=== PATIENT | female | born 1970 | race Caucasian/White ===

== ENCOUNTER 2021-03-29 13:58 | Outpatient (CLI) | payer MEDICAID, SELFPAY ==
--- NOTE | 2021-03-29 14:30 | MM_ITS ---
WS: [id number] DIAGNOSTIC BILATERAL DIGITAL MAMMOGRAM WITH CAD HISTORY: N63.10 - Unspecified lump in the right breast, COMPARISON: 06/21/2019 and 05/31/2019 TECHNIQUE: Bilateral craniocaudad, mediolateral oblique, and mediolateral views are submitted. Spot c ompression RIGHT CC. Computer aided detection utilized. Breast composition: There are scattered areas of fibroglandular density. Well-circumscribed nodule in the lateral RIGHT breast is stable over multiple prior years. There are no new or suspicious masses or calcifications. MM/[place] [id number] IMPRESSION: BI-RADS: 2-Benign FOLLOW UP: 1 Year Follow-up
== END 2021-03-29 13:59 | disposition home or self-care (01) ==
LOC: RADSHAW 14:01
PROVIDERS: Family Provider Nurse Practitioner; PCP Family Medicine; Visit Provider Family Medicine
DX: N63.10 Unspecified lump in the right breast, unspecified quadrant (principal)
CPT/HCPCS: 77066

== ENCOUNTER 2021-05-21 10:45 | Outpatient (CLI) | payer MEDICAID, SELFPAY ==
--- NOTE | 2021-05-21 10:15 | USCV_ITS ---
Alexsander Estephania Age: 50 Gender: F : 1970 Exam Date: 05/21/2021 11:04 Ordering Phys: Minerva Jefferson FORMING DEPARTMENT END FINDER FORMING DEPARTMENT END FINDER Technologist: TERENCE [place]am [place] [facility] [place] RIGHT LEG PAIN HISTORY: Lower extremity swelling. Lower extremity pain. PROCEDURES: Venous duplex imaging was performed in only the right lower extremity. The following venous structures were evaluated: common femoral vein, profunda vein, proximal portion of the greater saphenous vein, superficial femoral vein, and the popliteal vein. In addition, the posterior tibial and peroneal trunk were evaluated. FINDINGS: Normal 2-D Doppler and augmentation and compressibility throughout the lower extremity venous structures. Additional imaging through the proximal calf veins also reveals no thrombus. Limited evaluation of the greater saphenous vein is patent with no thrombus.. CONCLUSIONS No evidence of right lower extremity DVT. Leonid Schaeffer MD (Electronically Signed) Final Date: 21 May 2021 15:13 S
== END 2021-05-21 10:46 | disposition home or self-care (01) ==
LOC: RAD 10:51
PROVIDERS: Visit Provider Nurse Practitioner Family
DX: M79.89 Other specified soft tissue disorders (principal); M79.604 Pain in right leg; I10 Essential (primary) hypertension
CPT/HCPCS: 80053; 80061; 82306; 82607; 84443; 85025; 93971

== ENCOUNTER 2021-06-10 11:44 | Outpatient (CLI) | payer MEDICAID, SELFPAY ==
--- NOTE | 2021-06-10 11:45 | US_ITS ---
WS: [id number] ULTRASOUND SOFT TISSUES RIGHT lower extremity. HISTORY: M79.89 - Other specified soft tissue disorders COMPARISON: None available. TECHNIQUE: 2-D and color Doppler imaging is submitted. Ultrasound is directed to the anterior proximal tibia. There is a soft tissue complex ill-defined col lection measuring 3.5 x 3.2 x 1.7 cm. Very minimal peripheral increased vascularity. This is a comple x collection with fluid and infiltration into the adjacent soft tissues. US/US soft tissue/extremity [id number] IMPRESSION: Minimally complex fluid collection just below the knee. Differential includes d istended bursa or phlegmonous collection.
== END 2021-06-10 11:45 | disposition home or self-care (01) ==
LOC: US 11:47
PROVIDERS: PCP Nurse Practitioner Family; Visit Provider Nurse Practitioner Family
DX: M79.89 Other specified soft tissue disorders (principal)
CPT/HCPCS: 76882

== ENCOUNTER 2021-08-07 10:25 | Inpatient (IN) | payer MEDICAID, SELFPAY ==
[2021-08-07] VITALS (13 sets, daily range): BP systolic 96–168; BP diastolic 60–80; PULSE 64–103; RESP 18–29; TEMP 36.9–38.5; O2SAT 89–98; BMI 74.4; BMI 76.6
--- NOTE | 2021-08-07 10:59 | ED_ITS ---
HPI - COVID General: Chief Complaint: COVID symptoms Stated Complaint: COVID COUGH Time Seen by Provider: 08/07/21 10:34 Triage information: Has fever, cough or shortness of breath . Exposure to COVID + person last 14 days History of Present Illness: HPI Narrative: Ms. Beltre is a 50-year-old lady with complex past medical history including asthma who presents emerged department due to shortness of breath and cough. She reports cough was gradual onset initially dry however now productive over the past 3 days. She has mild increase shortness of breath however this morning she woke up feeling markedly ill. She has moderate to severe intensity headache, muscle aches, generalized malaise. She has had nausea but no vomiting. She has had diarrhea. She does have positive sick exposures to COVID-19. She reports that she is unable to get vaccinated due to flu shot allergy. Overall the course of symptoms has been worsening. Symptoms are worse with exertion but do not go with rest. No other specific exacerbating or relieving factors identified. She has not had to change the frequency of her asthma treatment. COVID Results: SARS-CoV-2 Antigen (Rapid) Positive (Negative) H 08/07/21 11:05 08/07/21 Nasal/Oral Coronavirus 2019 PCR Detected H 08/07/21 11:05 08/07/21 Review of Systems General: Reports: 10 or more systems reviewed and unremarkable except in HPI and below PFSH ED PFSH: Medical History COVID-19 Essential hypertension Hypoxemia Pneumonia due to COVID-19 virus Thyroid cyst Surgical History Hx of cholecystectomy Hx of tubal ligation Family History Brother CAD (coronary artery disease) [place] age 29 Diabetes Sister CAD (coronary artery disease) Son CAD (coronary artery disease) Father Cancer Mother Cancer Social History Second hand smoke exposure: No Alcohol intake: never Caregiver/support person: Yes Lives independently: Yes Household members: spouse and children Marital status: service: No Current occupational status: disabled History of recent travel: No Current gender identity: Female Special maeve needs: No Agree to transfusion: Yes Physical Exam Narrative: EXAM NARRATIVE: GENERAL/CONSTITUTIONAL -chronically ill appearance, obese. Eyes - PERRL, no conjunctival injection ENMT - Atraumatic external nose and ears. Dry mucous membranes NECK - supple. trachea midline CARDIOVASCULAR - regular rate and rhythm. Peripheral pulses 2+ and equal RESPIRATORY - coarse to auscultation bilaterally. Increased respiratory effort with tachypnea. Supplemental oxygen in place. ABDOMEN/GI - Nontender/Nondistended. No tenderness to percussion or evidence of peritonitis MSK - Extremities without obvious deformity or tenderness to palpation SKIN - Warm, Dry. Bilateral candidal appearing skin changes under breasts NEURO - alert and appropriately oriented. Moves all extremities equally. Course ED course: - Patient was seen and evaluated by me at bedside - Patient placed on cardiac monitors, IV access obtained - Initial evaluation notable for ill appearance, increased work of breathing. Febrile. -Symptom treatment ordered - Labs notable for no leukocytosis, metabolic panel without significant abnormality to explain symptoms. Delta troponin negative. Procalcitonin negative. Urinalysis difficult to interpret due to squamous epithelial contamination, will send for culture. Covid positive. - Imaging notable for patchy infiltrate - Upon serial reexamination after treatment the patient was similar - Based on patient history, evaluation, labs, and imaging as interpreted the most likely cause of the patient's condition is COVID-19 pneumonia in the context of significant comorbidity - The results of ED evaluation were discussed with the patient including plan for admission due to requirement for level of care not available if discharged to prevent significant worsening/deterioration. - Hospitalist service contacted and agreed admit the patient. - Patient was admitted without further deterioration or significant events. Vital Signs: Vital signs: Vital Signs Temperature 98.2 F 08/10/21 11:50 Pulse Rate 85 08/10/21 11:50 Respiratory Rate 18 08/10/21 11:50 Blood Pressure 97/61 08/10/21 11:50 Pulse Oximetry 88 L 08/10/21 13:54 MDM - COVID Medical Records: Attestation: I reviewed the patient's medical records. Lab Data: Attestation: I reviewed the patient's lab results. Labs: Lab Results 08/07/21 08/07/21 08/07/21 11:05 11:05 11:42 WBC 4.2 10^3/uL 10^3/ uL (4.0-10.0) RBC 4.66 10^6/uL 10^6 /uL (4.1-5.3) Hgb 13.8 g/dL g/dL (11.5-15.3) Hct 40.7 % % (37.0-47.0) MCV 87.3 fl fl (81-99) MCH 29.6 pg pg (28.0-34.0) MCHC 33.9 g/dL g/dL (30.0-36.0) RDW 13.4 % % (12.1-15.1) Plt Count 168 10^3/cmm 10^3 /cmm (130-400) MPV 11.0 fL H fL (7.4-10.4) Neut % (Auto) 66.8 % % Lymph % (Auto) 24.4 % % [place] % (Auto) 8.1 % % Eos % (Auto) 0.0 % % Baso % (Auto) 0.2 % % Neut # (Auto) 2.79 10^3/uL 10^3 /uL (1.8-7.7) Lymph # (Auto) 1.0 10^3/uL 10^3/ uL (0.8-4.8) [place] # (Auto) 0.3 10^3/uL 10^3/ uL (0.2-0.9) Eos # (Auto) 0.0 10^3/uL 10^3/ uL (0.0-0.8) Baso # (Auto) 0.0 10^3/uL 10^3/ uL (0.0-0.1) Nucleated RBC % (a uto) 0 % % Nucleated RBCs # 0.0 /100WBC /100W BC Specimen Type Sample Site ABG pH ABG pCO2 ABG pO2 ABG HCO3 ABG Base Excess [place] Test Hematocrit O2 Delivery Device O2 Liters/Min FiO2 Delivery Nurse ID Sodium Potassium Chloride Carbon Dioxide Anion Gap BUN Creatinine GFR Calculation Glucose Calculated Osmolal ity Lactic Acid Calcium Total Bilirubin AST ALT Alkaline Phosphata se Troponin T Baselin e Troponin T 120 Min [place] Delta Troponin T C-Reactive Protein NT-Pro-B Natriuret Pep Total Protein Albumin Globulin Procalcitonin Urine Color Urine Appearance Urine pH Ur Specific Gravit y Urine Protein Urine Glucose (UA) Urine Ketones Urine Blood Urine Nitrate Urine Bilirubin Urine Urobilinogen Ur Leukocyte Saima ase Urine RBC Urine WBC Ur Squamous Epith Cells Amorphous Sediment Urine Bacteria Urine Mucus Nasal/Oral COVID-1 9 PCR Detected H Influenza Type A A g Influenza Type B A g SARS-CoV-2 Ag (Rap id) Positive H (Negative) 08/07/21 08/07/21 08/07/21 11:42 11:42 11:42 WBC RBC Hgb Hct MCV MCH MCHC RDW Plt Count MPV Neut % (Auto) Lymph % (Auto) [place] % (Auto) Eos % (Auto) Baso % (Auto) Neut # (Auto) Lymph # (Auto) [place] # (Auto) Eos # (Auto) Baso # (Auto) Nucleated RBC % (a uto) Nucleated RBCs # Specimen Type Sample Site ABG pH ABG pCO2 ABG pO2 ABG HCO3 ABG Base Excess [place] Test Hematocrit O2 Delivery Device O2 Liters/Min FiO2 Delivery Nurse ID Sodium 134 mmol/L L mmol /L (136-145) Potassium 3.9 mmol/L mmol/L (3.5-5.1) Chloride 101 mmol/L mmol/L (98-107) Carbon Dioxide 22 mmol/L mmol/L (22-29) Anion Gap 14.9 (5-19) BUN 13 mg/dL mg/dL (6-20) Creatinine 0.9 mg/dL mg/dL (0.5-0.9) GFR Calculation 65.8 mL/min L mL/ min (90-130) Glucose 108 mg/dL mg/dL (65-115) Calculated Osmolal ity 279 mOsm/kg L mOs m/kg (285-295) Lactic Acid 0.8 mmol/L mmol/L (0.5-2.2) Calcium 7.8 mg/dL L mg/dL (8.5-10.5) Total Bilirubin 0.3 mg/dL mg/dL (0.15-1.2) AST 45 U/L H U/L (0-32) ALT 15 U/L U/L (0-33) Alkaline Phosphata se 60 IU/L IU/L (35-105) Troponin T Baselin e 10 ng/L ng/L (0-10) Troponin T 120 Min [place] Delta Troponin T C-Reactive Protein 99.3 mg/L H mg/L (0.0-4.9) NT-Pro-B Natriuret Pep 29 pg/mL pg/mL (0-125) Total Protein 6.0 g/dL L g/dL (6.6-8.7) Albumin 3.4 g/dL L g/dL (3.5-5.2) Globulin 2.6 g/dL g/dL (1.3-4.6) Procalcitonin 0.13 ng/mL ng/mL (0-0.5) Urine Color Urine Appearance Urine pH Ur Specific Gravit y Urine Protein Urine Glucose (UA) Urine Ketones Urine Blood Urine Nitrate Urine Bilirubin Urine Urobilinogen Ur Leukocyte Saima ase Urine RBC Urine WBC Ur Squamous Epith Cells Amorphous Sediment Urine Bacteria Urine Mucus Nasal/Oral COVID-1 9 PCR Influenza Type A A g Influenza Type B A g SARS-CoV-2 Ag (Rap id) 08/07/21 08/07/21 08/07/21 11:49 11:50 11:55 WBC RBC Hgb Hct MCV MCH MCHC RDW Plt Count MPV Neut % (Auto) Lymph % (Auto) [place] % (Auto) Eos % (Auto) Baso % (Auto) Neut # (Auto) Lymph # (Auto) [place] # (Auto) Eos # (Auto) Baso # (Auto) Nucleated RBC % (a uto) Nucleated RBCs # Specimen Type Arterial Sample Site Brachial, right ABG pH 7.42 (7.35-7.45) ABG pCO2 36.0 mmHg mmHg (35-45) ABG pO2 82.1 mmHg mmHg (80.0-100.0) ABG HCO3 23.2 mmol/L mmol/ L (22-26) ABG Base Excess -0.9 mmol/L mmol/ L (-2.0-2.0) [place] Test N/a Hematocrit 43.3 % % (37-47) O2 Delivery Device Nc O2 Liters/Min 2.0 % % FiO2 28.0 % % Delivery Nurse ID Amh Sodium Potassium Chloride Carbon Dioxide Anion Gap BUN Creatinine GFR Calculation Glucose Calculated Osmolal ity Lactic Acid Calcium Total Bilirubin AST ALT Alkaline Phosphata se Troponin T Baselin e Troponin T 120 Min [place] Delta Troponin T C-Reactive Protein NT-Pro-B Natriuret Pep Total Protein Albumin Globulin Procalcitonin Urine Color Dark yellow (Yellow) Urine Appearance Hazy A (CLEAR) Urine pH 5 (5-7) Ur Specific Gravit y 1.020 (1.005-1.030) Urine Protein 1+ H (Negative) Urine Glucose (UA) Norm (Normal) Urine Ketones 2+ H (Negative) Urine Blood Neg (Negative) Urine Nitrate Negative (Negative) Urine Bilirubin 1+ H (Negative) Urine Urobilinogen 8 mg/dL H mg/dL (Negative) Ur Leukocyte Saima ase Trace H (Negative) Urine RBC Not Reportable Urine WBC 10-15 /hpf H /hpf (0-5) Ur Squamous Epith Cells 5-10 /hpf H /hpf (0-5) Amorphous Sediment Not Reportable Urine Bacteria 2+ /hpf H /hpf (NONE) Urine Mucus 2+ /hpf /hpf Nasal/Oral COVID-1 9 PCR Influenza Type A A g Negative (Negative) Influenza Type B A g Negative (Negative) SARS-CoV-2 Ag (Rap id) 08/07/21 13:55 WBC RBC Hgb Hct MCV MCH MCHC RDW Plt Count MPV Neut % (Auto) Lymph % (Auto) [place] % (Auto) Eos % (Auto) Baso % (Auto) Neut # (Auto) Lymph # (Auto) [place] # (Auto) Eos # (Auto) Baso # (Auto) Nucleated RBC % (a uto) Nucleated RBCs # Specimen Type Sample Site ABG pH ABG pCO2 ABG pO2 ABG HCO3 ABG Base Excess [place] Test Hematocrit O2 Delivery Device O2 Liters/Min FiO2 Delivery Nurse ID Sodium Potassium Chloride Carbon Dioxide Anion Gap BUN Creatinine GFR Calculation Glucose Calculated Osmolal ity Lactic Acid Calcium Total Bilirubin AST ALT Alkaline Phosphata se Troponin T Baselin e Troponin T 120 Min [place] 10.53 ng/L H ng/L (0-10) Delta Troponin T 0.53 ABS# ABS# (0-10) C-Reactive Protein NT-Pro-B Natriuret Pep Total Protein Albumin Globulin Procalcitonin Urine Color Urine Appearance Urine pH Ur Specific Gravit y Urine Protein Urine Glucose (UA) Urine Ketones Urine Blood Urine Nitrate Urine Bilirubin Urine Urobilinogen Ur Leukocyte Saima ase Urine RBC Urine WBC Ur Squamous Epith Cells Amorphous Sediment Urine Bacteria Urine Mucus Nasal/Oral COVID-1 9 PCR Influenza Type A A g Influenza Type B A g SARS-CoV-2 Ag (Rap id) EKG Data: EKG 1: Attestation: I personally reviewed and interpreted this EKG as follows: EKG interpretation date: 08/07/21 EKG interpretation time: 11:44 Interpretation: Twelve-lead EKG shows a regular rhythm at a rate of 91. NC interval 161, QRS duration 101, QTc 429. Borderline axis Interpretation: Sinus rhythm. EKG 2: Attestation: I personally reviewed and interpreted this EKG as follows: EKG interpretation date: 08/07/21 EKG interpretation time: 16:41 Interpretation: Twelve-lead EKG shows a regular rhythm at a rate of 86. NC interval 164, QRS duration 93, QTc 433. Borderline axis. Interpretation: Sinus rhythm. COVID Results: SARS-CoV-2 Antigen (Rapid) Positive (Negative) H 08/07/21 11:05 08/07/21 Nasal/Oral Coronavirus 2019 PCR Detected H 08/07/21 11:05 08/07/21 Discharge Plan Discharge Patient Disposition: Admitted As Inpatient Admit Provider: Torres Griffin Clinical Impression: COVID-19, Hypoxemia Condition: Stable Discharge Diet: Regular Discharge Activity: Increase activity as tolerated Coding Level of Care Code ED Legal Executive for Pilar Cummings
--- NOTE | 2021-08-07 11:13 | ECG_ITS ---
[facility] Test Date: 2021-08-07 Pat Name: Estephania Beltre Department: Room: Gender: Female Urology Physician: : 1970 Requested By: Bryan Ashley Order Number: [id number] Prakash MD: Jose Tracy M.D. Measurements Intervals [place] Rate: 91 P: 23 [place]: 161 QRS: -25 QRSD: 101 T: 21 QT: 348 QTc: 429 Interpretive Statements SINUS RHYTHM BORDERLINE LEFT AXIS DEVIATION [QRS AXIS < -20] Compared to ECG 01/01/2018 08:38:26 Sinus tachycardia no longer present Indeterminate axis no longer present Incomplete right bundle-branch block no longer present Myocardial infarct finding no longer present Electronically Signed On 08-07-2021 20:42:52 EDGE BASTER by Jose Tracy M.D. [id number]
--- NOTE | 2021-08-07 11:13 | XR_ITS ---
WS: [id number] Portable AP semiupright chest, 08/07/2021 Clinical Data: sob, cough Comparison: PA and lateral chest, 10/28/2012. Findings: No nodules, masses or effusions are seen. The heart is enlarged. The pulmonary vascularity is not increased. No pneumothorax is seen. There are patchy bilateral opacities throughout the lungs which may represent pneumonia. Monitor leads are on the chest wall. XR/XR chest 1V portable [id number] Impression: 1. Patchy bilateral pulmonary opacities which may represent pneumonia. 2. Cardiomegaly.
[2021-08-07 12:00] LABS: Basophils % 0.2 %; Hematocrit 40.7 % (37.0-47.0); Hemoglobin 13.8 g/dL (11.5-15.3); Lymphocytes % 24.4 %; Mean Corpuscular HGB Conc 33.9 g/dL (30.0-36.0); Mean Corpuscular Hemoglobin 29.6 pg (28.0-34.0); Mean Corpuscular Volume 87.3 fl (81-99); Monocytes # 0.3 10^3/uL (0.2-0.9); Monocytes % 8.1 %; Neutrophils # 2.79 10^3/uL (1.8-7.7); Neutrophils % 66.8 %; Nucleated Red Blood Cells % 0 %; Platelet Count 168 10^3/cmm (130-400); Red Blood Count 4.66 10^6/uL (4.1-5.3); Red Cell Distribution Width 13.4 % (12.1-15.1); White Blood Count 4.2 10^3/uL (4.0-10.0)
[2021-08-07 12:00] LABS: ABG PH Result 7.42 (7.35-7.45); Arterial Blood Gas Hematocrit 43.3 % (37-47); Base Excess ABG -0.9 mmol/L (-2.0-2.0); Blood Gas Operator Identificat AMH; Blood Gas Sample Site Brachial, right; Blood Gas Sample Type Arterial; HCO3 ABG 23.2 mmol/L (22-26); Oxygen Device NC; PO2 ABG 82.1 mmHg (80.0-100.0)
[2021-08-07 12:22] LABS: Lactic Sepsis W/Reflex 0.8 mmol/L (0.5-2.2)
[2021-08-07 12:26] LABS: Troponin(5th) Baseline 10 ng/L (0-10)
[2021-08-07 12:31] LABS: NT Pro B Type Natriuretic Pept 29 pg/mL (0-125); Procalcitonin 0.13 ng/mL (0-0.5)
[2021-08-07 12:42] LABS: Alanine Aminotransferase 15 U/L (0-33); Albumin Level 3.4 g/dL (3.5-5.2); Alkaline Phosphatase 60 IU/L (35-105); Anion Gap 14.9 (5-19); Aspartate Amino Transferase 45 U/L (0-32); Blood Urea Nitrogen 13 mg/dL (6-20); C Reactive Protein 99.3 mg/L (0.0-4.9); Calcium 7.8 mg/dL (8.5-10.5); Carbon Dioxide 22 mmol/L (22-29); Chloride 101 mmol/L (98-107); Globulin 2.6 g/dL (1.3-4.6); Glomerular Filtration Rate 65.8 mL/min (90-130); Glucose 108 mg/dL (65-115); Osmolality Calculated 279 mOsm/kg (285-295); Potassium 3.9 mmol/L (3.5-5.1); Sodium 134 mmol/L (136-145); Total Bilirubin 0.3 mg/dL (0.15-1.2)
[2021-08-07 13:02] LABS: SARS Covid-2 Antigen Positive (Negative)
[2021-08-07 13:02] LABS: Influenza A by IFA Negative (Negative); Influenza B by IFA Negative (Negative)
--- NOTE | 2021-08-07 13:13 | ECG_ITS ---
[facility] Test Date: 2021-08-07 Pat Name: Estephania Beltre Department: Room: 275 Gender: Female Vat Overhauler: : 1970 Requested By: rByan Ashley Order Number: [id number] Prakash MD: Jose Tracy M.D. Measurements Intervals [place] Rate: 86 P: 29 [place]: 164 QRS: 3 QRSD: 93 T: 24 QT: 361 QTc: 433 Interpretive Statements SINUS RHYTHM Compared to ECG 08/07/2021 14:27:46 Indeterminate axis no longer present Electronically Signed On 08-07-2021 20:51:35 INSPECTOR PRECISION by Jose Tracy M.D. [id number]
--- NOTE | 2021-08-07 13:42 | PC.PHAR ---
PT STATES SHE TAKES CARE OF HER OWN MEDICATIONS-PT VERIFIED MEDICATIONS ENTERED
[2021-08-07] MEDS: acetaminophen 500 mg Tablet 1000 MG PO (13:46)
[2021-08-07 13:48] LABS: Charge for UA Resulting for Rev
[2021-08-07] MEDS: fentaNYL 50 mcg/mL INJ 2mL IVP (13:48)
[2021-08-07] MEDS: ondansetron 2 mg/ML SDV 2 mL 4 MG IVP (13:48)
[2021-08-07] MEDS: sodium chloride 0.9% 500 ML 999 ML IV (13:52)
[2021-08-07 14:01] LABS: Glucose Urine UA Norm (Normal); Ketones Urine 2+ (Negative); Protein Urine 1+ (Negative); Urine Appearance Hazy (CLEAR); Urine Color Dark Yellow (Yellow); pH Urine 5 (5-7)
[2021-08-07 14:02] LABS: Add Urine Microscopic? YES; Bilirubin Urine 1+ (Negative); Blood Urine Neg (Negative); Leukocyte Esterase Urine Trace (Negative); Nitrate Urine Negative (Negative); Urobilinogen Urine 8 mg/dL (Negative)
[2021-08-07 14:09] LABS: Add Urine Culture? Yes; Bacteria Urine 2+ /hpf; Mucus Urine 2+ /hpf
[2021-08-07 14:33] LABS: Troponin 5 2HR 10.53 ng/L (0-10); Troponin 5 2HR Delta 0.53 ABS# (0-10)
[2021-08-07] MEDS: albuterol 8 gm MDI 2 PUFF INHALATION ×3 (16:25→23:48)
[2021-08-07] MEDS: cefTRIAXone 1,000 MG in sodium chloride 0.9% (plus) 50 ML 100 MG IV (16:39)
[2021-08-07] MEDS: enoxaparin 40 mg/0.4 mL Syringe SUBCUT (16:39)
[2021-08-07] MEDS: doxycycline 100 MG in sodium chloride 0.9% (plus) 100 ML IV (16:43)
[2021-08-07] MEDS: dexamethasone 4 mg/mL INJ 6 MG IVP (16:44)
[2021-08-07] MEDS: remdesivir 200 MG in sodium chloride 0.9% (100 ml) 60 ML 100 MG IV (16:44)
[2021-08-07] MEDS: nystatin powder 15 gm Btl 1 APPLIC TOPICAL (16:45)
[2021-08-07] MEDS: ascorbic acid 500 mg Tablet 1000 MG PO (17:12)
--- NOTE | 2021-08-07 17:13 | ECG_ITS ---
[facility] Test Date: 2021-08-07 Pat Name: Estephania Beltre Department: Room: Gender: Female Visitor Use Assistant: : 1970 Requested By: Bryan Ashley Order Number: [id number] Prakash MD: Jose Tracy M.D. Measurements Intervals [place] Rate: 94 P: 18 [place]: 149 QRS: 9 QRSD: 98 T: 14 QT: 346 QTc: 433 Interpretive Statements SINUS RHYTHM INDETERMINATE AXIS PATTERN CONSISTENT WITH PULMONARY DISEASE Compared to ECG 08/07/2021 11:28:56 Indeterminate axis now present Electronically Signed On 08-07-2021 20:49:29 OIL FIELD PUMPER by Jose Tracy M.D. [id number]
[2021-08-07 18:48] LABS: Troponin 5 6HR 9.68 ng/L (0-10)
[2021-08-07 18:56] LABS: Troponin 5 6HR Delta -0.32 ng/L (0-12)
--- NOTE | 2021-08-07 19:39 | PM.HP ---
Providers/Chief Complaint Admitting Physician: Torres Griffin MD Primary Care Provider: RAND Mares Chief Complaint: COVID COUGH History of Present Illness Estephania Beltre is a 50 year old female with past medical history of hypertension and morbid obesity came in with chief complaint of fever , cough , and generalized weakness, generalized body pain, shortness of breath ,going on for the last 3 to 4 days. Upon arrival in the ER, she was worked up for above mention, complain. Pertaining imaging study: XR chest : Bilateral pulmonary infiltrates Pertinent labs: WBC :4.2, H&H:13.8/40.7, PLT : 168, serum sodium:134 , serum potassium:3.9, BUN / serum creatinine: 13/0.9, Lactic acid:0.8, procalcitonin:NORMAL, troponin trend without significant delta. Rapid Covid antigen: Positive CRP:99.3, Review of Systems Const: Denies: change in appetite or diaphoresis Card: Denies: edema, swelling of feet/ankles, orthopnea or leg pain with exertion Resp: Denies: pain on inspiration GI: Denies: abdominal pain, diarrhea or constipation : Denies: flank pain Musc: Denies: extremity pain or extremity swelling Neuro: Denies: difficulty walking or confusion Medications/Allergies Home Medications Medication Instructions Recorded Confirmed Last Taken Type hydrochlorothiazide 25 mg tablet 25 mg PO QAM #90 tab 05/21/21 08/07/21 08/06/21 Rx Allergy Relief (cetirizine) 10 mg PO QAM 08/07/21 08/07/21 Unknown History ProAir HFA 2 puff INHALATION QID PRN 08/07/21 08/07/21 Unknown History acetaminophen [Tylenol Ex Str 500 mg PO Q4H PRN 08/07/21 08/07/21 08/07/21 06:00 History Rapid Release] albuterol sulfate 2.5 mg INHALATION QID PRN 08/07/21 08/07/21 Unknown History ergocalciferol (vitamin D2) 50,000 unit PO Q7D 08/07/21 08/07/21 08/05/21 History fluticasone propionate 2 spray INTRANASAL DAILY 08/07/21 08/07/21 08/06/21 History lisinopril 10 mg PO QAM 08/07/21 08/07/21 08/06/21 History melatonin 10 mg PO BEDTIME 08/07/21 08/07/21 Unknown History montelukast 10 mg PO QAM 08/07/21 08/07/21 08/06/21 History trazodone 50 mg PO BEDTIME 08/07/21 08/07/21 08/06/21 History Allergies Allergy/AdvReac Type Severity Reaction Status Date / Time aspirin Allergy Unknown RASH Verified 08/07/21 13:45 dextromethorphan Allergy Unknown RASH Verified 08/07/21 13:45 [From Entex PAC] erythromycin base Allergy Unknown Unknown Verified 08/07/21 13:45 guaifenesin [From Entex PAC] Allergy Unknown RASH Verified 08/07/21 13:45 ibuprofen Allergy Unknown RASH Verified 08/07/21 13:45 Penicillins Allergy Unknown Unknown Verified 08/07/21 13:45 pseudoephedrine Allergy Unknown RASH Verified 08/07/21 13:45 [From Entex PAC] tramadol [From Ultram] Allergy Unknown RASH Verified 08/07/21 13:45 Influenza Virus Vaccines Allergy Unknown Verified 08/07/21 13:45 pneumococcal vaccine Allergy Unknown Verified 08/07/21 13:45 PFSH Acute PFSH: Medical History Thyroid cyst Surgical History Hx of cholecystectomy Hx of tubal ligation Family History Brother CAD (coronary artery disease) [place] age 29 Diabetes Sister CAD (coronary artery disease) Son CAD (coronary artery disease) Father Cancer Mother Cancer Social History Second hand smoke exposure: No Alcohol intake: never Caregiver/support person: Yes Lives independently: Yes Household members: spouse and children Marital status: service: No Current occupational status: disabled History of recent travel: No Current gender identity: Female Special maeve needs: No Agree to transfusion: Yes Vitals/I&O/Wt Last Vital Signs Temp 99.1 F 08/07/21 16:36 Pulse 87 08/07/21 16:36 Resp 23 H 08/07/21 16:36 BP 107/62 11/10/21 16:36 Pulse Ox 92 08/07/21 16:36 08/07/21 08/07/21 08/07/21 06:59 14:59 22:59 Intake Total 500 / 500 510 / 1010 Balance 500 / 500 510 / 1010 Weight last 48 hrs Weight 196.122 kg Weight 190.509 kg Physical Exam Const: COMMON NORMALS: patient oriented x3 HENMT: COMMON NORMALS: normocephalic and atraumatic HEAD & SCALP: normocephalic and atraumatic Resp: COMMON NORMALS: clear to auscultation bilaterally EFFORT & INSPECTION: Yes symmetric chest movement AUSCULTATION: clear to auscultation bilaterally OTHER: Diminished air entry at bases Cardio: COMMON NORMALS: regular rate, regular rhythm, S1 normal heart sound present, S2 normal heart sound present, No gallops present (Cardio), No murmurs present (Cardio), No rub (Cardio) and Peripheral pulses 2+ throughout RATE: regular rate RHYTHM: regular rhythm HEART SOUNDS: S1 normal heart sound present and S2 normal heart sound present PERIPHERAL PULSES: Peripheral pulses 2+ throughout GI: COMMON NORMALS: Normal to inspection, nondistended, normoactive bowel sounds present, Soft to palpation, non-tender, No hepatosplenomegaly present and no masses AUSCULTATION: Yes normoactive bowel sounds PALPATION: Yes Soft to palpation and Yes No hepatosplenomegaly present RECTAL EXAM: deferred Extremity: COMMON NORMALS: no clubbing, cyanosis or edema and no pedal edema Neuro: COMMON NORMALS: patient oriented x3 Urinary Catheter Management^: 2-way Urethral Latex Free: Cath Placed During This Visit: yes Reason for Continuing Indwelling Catheter: Acute Urinary Retention or Obstruction Urinary Catheter Date of Insertion: 08/07/21 Urinary Catheter Time of Insertion: 12:00 Data : 08/07/21 11:42 08/07/21 11:42 Micro: Microbiology 08/07/21 11:42 Blood Culture - Preliminary Blood SPECIMEN COLLECTED 08/07/21 11:42 Blood Culture - Preliminary Blood SPECIMEN COLLECTED A&P Assessment and plan (1) Pneumonia due to COVID-19 virus: Pneumonia due to COVID-19 virus. X-ray chest: Blood culture: ESR CRP D-dimer Ferritin LDH Dexamethasone 6 mg IV daily for 10 days Remdesivir for 3 - 5 days Duo nebs Advair inhaler Pulmonary toilet Empirically on ceftriaxone and doxycycline Lovenox 40 mg subcu every 12 hours daily I/O Charting Lasix as needed. Supplemental oxygen as needed. incentive spirometer and flutter valve Possible pulmonary consult Status: Acute (2) Essential hypertension: Continue lisinopril 10 mg p.o. daily,hctz 25 mg po daily Status: Acute Attestations Medical Necessity Statement*: Patient needs to be in hospital for management of Covid pneumonia. Anticipated length of stay greater than 2 midnightS. Coding Level of Care Code Acute Manager Of Sustainability for [facility] Fwd Exam Detailed Diagnoses Pneumonia due to COVID-19 virus U07.1; J12.82 Essential hypertension I10
[2021-08-07] MEDS: trazodone 50 mg Tablet PO (20:23)
[2021-08-08] VITALS (13 sets, daily range): BP systolic 106–125; BP diastolic 67–92; PULSE 69–90; RESP 16–24; TEMP 36.6–37.1; O2SAT 90–95
[2021-08-08] MEDS: albuterol 8 gm MDI 2 PUFF INHALATION ×4 (04:38→17:13)
[2021-08-08] MEDS: doxycycline 100 MG in sodium chloride 0.9% (plus) 100 ML IV ×2 (04:43→15:38)
[2021-08-08] MEDS: enoxaparin 40 mg/0.4 mL Syringe SUBCUT ×2 (04:43→15:39)
[2021-08-08] MEDS: hydroCHLOROthiazide 25 mg Tablet PO (05:00)
[2021-08-08 05:34] LABS: Hematocrit 40.7 % (37.0-47.0); Hemoglobin 13.6 g/dL (11.5-15.3); Lymphocytes # 0.7 10^3/uL (0.8-4.8); Lymphocytes % 25.3 %; Mean Corpuscular HGB Conc 33.4 g/dL (30.0-36.0); Mean Corpuscular Hemoglobin 29.1 pg (28.0-34.0); Mean Platelet Volume 11.7 fL (7.4-10.4); Monocytes # 0.3 10^3/uL (0.2-0.9); Monocytes % 10.8 %; Neutrophils # 1.71 10^3/uL (1.8-7.7); Neutrophils % 63.5 %; Nucleated Red Blood Cells % 0 %; Platelet Count 177 10^3/cmm (130-400); Red Blood Count 4.68 10^6/uL (4.1-5.3); Red Cell Distribution Width 13.6 % (12.1-15.1); White Blood Count 2.7 10^3/uL (4.0-10.0)
[2021-08-08 05:48] LABS: INR 1.02 (0.8-1.2)
[2021-08-08 05:49] LABS: Partial Thromboplastin Time 34.6 SECONDS (23.9-36.7)
[2021-08-08 05:55] LABS: Alanine Aminotransferase 17 U/L (0-33); Albumin Level 3.4 g/dL (3.5-5.2); Alkaline Phosphatase 60 IU/L (35-105); Anion Gap 16.8 (5-19); Aspartate Amino Transferase 50 U/L (0-32); Blood Urea Nitrogen 11 mg/dL (6-20); Calcium 7.9 mg/dL (8.5-10.5); Carbon Dioxide 21 mmol/L (22-29); Chloride 101 mmol/L (98-107); Globulin 3.3 g/dL (1.3-4.6); Glomerular Filtration Rate 75.3 mL/min (90-130); Glucose 137 mg/dL (65-115); Osmolality Calculated 282 mOsm/kg (285-295); Potassium 3.8 mmol/L (3.5-5.1); Sodium 135 mmol/L (136-145); Total Bilirubin 0.3 mg/dL (0.15-1.2); Total Protein 6.7 g/dL (6.6-8.7)
[2021-08-08 06:07] LABS: NT Pro B Type Natriuretic Pept 37 pg/mL (0-125)
[2021-08-08] MEDS: zinc gluconate 50 mg Tablet PO (08:31)
[2021-08-08] MEDS: nystatin powder 15 gm Btl 1 APPLIC TOPICAL ×2 (08:31→18:10)
[2021-08-08] MEDS: ascorbic acid 500 mg Tablet 1000 MG PO ×2 (08:31→18:10)
--- NOTE | 2021-08-08 13:25 | PM.PN ---
Subjective Subjective: Interval history: Patient shortness of breath and cough is improved. Has remained afebrile. Currently saturating well on minimal supplemental oxygen. Medications: Reviewed: Yes Vitals/I&O/Wt Last Vital Signs Temp 98.0 F 08/08/21 11:49 Pulse 82 08/08/21 11:49 Resp 18 08/08/21 11:49 BP 106/71 08/08/21 11:49 Pulse Ox 93 08/08/21 11:49 08/07/21 08/08/21 08/08/21 22:59 06:59 14:59 Intake Total 510 / 1010 550 / 1560 480 / 480 Balance 510 / 1010 550 / 1560 480 / 480 Weight last 48 hrs Weight 196.122 kg Weight 190.509 kg Physical Exam Const: COMMON NORMALS: patient oriented x3 HENMT: COMMON NORMALS: normocephalic and atraumatic HEAD & SCALP: normocephalic and atraumatic Resp: COMMON NORMALS: clear to auscultation bilaterally EFFORT & INSPECTION: Yes symmetric chest movement AUSCULTATION: clear to auscultation bilaterally OTHER: Diminished air entry at bases Cardio: COMMON NORMALS: regular rate, regular rhythm, S1 normal heart sound present, S2 normal heart sound present, No gallops present (Cardio), No murmurs present (Cardio), No rub (Cardio) and Peripheral pulses 2+ throughout RATE: regular rate RHYTHM: regular rhythm HEART SOUNDS: S1 normal heart sound present and S2 normal heart sound present PERIPHERAL PULSES: Peripheral pulses 2+ throughout GI: COMMON NORMALS: Normal to inspection, nondistended, normoactive bowel sounds present, Soft to palpation, non-tender, No hepatosplenomegaly present and no masses AUSCULTATION: Yes normoactive bowel sounds PALPATION: Yes Soft to palpation and Yes No hepatosplenomegaly present RECTAL EXAM: deferred Extremity: COMMON NORMALS: no clubbing, cyanosis or edema and no pedal edema Neuro: COMMON NORMALS: patient oriented x3 Urinary Catheter Management^: 2-way Urethral Latex Free: Cath Placed During This Visit: yes Reason for Continuing Indwelling Catheter: Other Urinary Catheter Date of Insertion: 08/07/21 Urinary Catheter Time of Insertion: 12:00 Data : 08/08/21 04:36 08/08/21 04:36 Micro: Microbiology 08/07/21 11:50 Urine Culture - Preliminary Urine,Clean Catch 08/07/21 11:42 Blood Culture - Preliminary Blood SPECIMEN COLLECTED 08/07/21 11:42 Blood Culture - Preliminary Blood SPECIMEN COLLECTED A&P Assessment and plan (1) Pneumonia due to COVID-19 virus: Pneumonia due to COVID-19 virus. X-ray chest: Blood culture:NTD Urine culture: ESR CRP D-dimer Ferritin LDH Dexamethasone 6 mg IV daily for 10 days Remdesivir for 3 - 5 days Duo nebs Advair inhaler Pulmonary toilet Empirically on ceftriaxone and doxycycline Lovenox 40 mg subcu every 12 hours daily I/O Charting Lasix as needed. Supplemental oxygen as needed. incentive spirometer and flutter valve Possible pulmonary consult Status: Acute (2) Essential hypertension: Continue lisinopril 10 mg p.o. daily,hctz 25 mg po daily Status: Acute Attestations Medical Necessity Statement*: Patient is to be hospital for management of Covid pneumonia. Coding Level of Care Code Acute Collection Systems Technician for [facility] Fwd Exam Detailed Diagnoses Pneumonia due to COVID-19 virus U07.1; J12.82 Essential hypertension I10
[2021-08-08] MEDS: dexamethasone 4 mg/mL INJ 6 MG IVP (15:39)
[2021-08-08] MEDS: cefTRIAXone 1,000 MG in sodium chloride 0.9% (plus) 50 ML 100 MG IV (16:59)
[2021-08-08] MEDS: remdesivir 100 MG in sodium chloride 0.9% (100 ml) 80 ML IV (19:00)
[2021-08-08] MEDS: trazodone 50 mg Tablet PO (20:11)
[2021-08-09] VITALS (15 sets, daily range): BP systolic 94–111; BP diastolic 60–74; PULSE 67–87; RESP 18–22; TEMP 36.4–37; O2SAT 90–97
[2021-08-09] MEDS: albuterol 8 gm MDI 2 PUFF INHALATION ×8 (00:07→23:53)
[2021-08-09] MEDS: doxycycline 100 MG in sodium chloride 0.9% (plus) 100 ML IV ×2 (04:26→18:11)
[2021-08-09] MEDS: enoxaparin 40 mg/0.4 mL Syringe SUBCUT ×2 (04:26→18:12)
[2021-08-09 06:14] LABS: Hematocrit 41.2 % (37.0-47.0); Hemoglobin 13.6 g/dL (11.5-15.3); Lymphocytes % 21.7 %; Mean Corpuscular Hemoglobin 28.6 pg (28.0-34.0); Mean Corpuscular Volume 86.7 fl (81-99); Mean Platelet Volume 11.4 fL (7.4-10.4); Monocytes # 0.5 10^3/uL (0.2-0.9); Monocytes % 10.3 %; Neutrophils # 3.02 10^3/uL (1.8-7.7); Neutrophils % 67.6 %; Nucleated Red Blood Cells % 0 %; Platelet Count 194 10^3/cmm (130-400); Red Blood Count 4.75 10^6/uL (4.1-5.3); Red Cell Distribution Width 13.6 % (12.1-15.1); White Blood Count 4.5 10^3/uL (4.0-10.0)
[2021-08-09 06:27] LABS: D Dimer 0.87 ug/mIFEU (0-0.59)
[2021-08-09 06:30] LABS: Fibrinogen 440 mg/dL (174-498)
[2021-08-09 06:31] LABS: Alanine Aminotransferase 18 U/L (0-33); Albumin Level 3.3 g/dL (3.5-5.2); Alkaline Phosphatase 58 IU/L (35-105); Aspartate Amino Transferase 51 U/L (0-32); Blood Urea Nitrogen 14 mg/dL (6-20); C Reactive Protein 60.7 mg/L (0.0-4.9); Carbon Dioxide 23 mmol/L (22-29); Chloride 101 mmol/L (98-107); Globulin 3.2 g/dL (1.3-4.6); Glomerular Filtration Rate 75.3 mL/min (90-130); Glucose 158 mg/dL (65-115); Osmolality Calculated 286 mOsm/kg (285-295); Sodium 136 mmol/L (136-145); Total Bilirubin 0.2 mg/dL (0.15-1.2); Total Protein 6.5 g/dL (6.6-8.7)
[2021-08-09 06:48] LABS: Ferritin 1273 ng/mL (15-150)
[2021-08-09 07:44] LABS: Slide Review Slide Review Perform
[2021-08-09] MEDS: ascorbic acid 500 mg Tablet 1000 MG PO ×2 (10:18→18:13)
[2021-08-09] MEDS: zinc gluconate 50 mg Tablet PO (10:18)
[2021-08-09] MEDS: nystatin powder 15 gm Btl 1 APPLIC TOPICAL ×2 (10:18→18:12)
--- NOTE | 2021-08-09 13:53 | PM.PN ---
Subjective Subjective: Interval history: Patient was seen and examined this morning currently saturating well on 2 to 3 L oxygens. Has continued to remain afebrile, still has minimum cough. Medications: Reviewed: Yes Vitals/I&O/Wt Last Vital Signs Temp 98.6 F 08/09/21 11:55 Pulse 74 08/09/21 11:55 Resp 20 H 08/09/21 11:55 BP 98/62 08/09/21 11:55 Pulse Ox 92 08/09/21 11:55 08/08/21 08/09/21 08/09/21 22:59 06:59 14:59 Intake Total 230 / 830 700 / 1530 120 / 120 Balance 230 / 830 700 / 1530 120 / 120 Weight last 48 hrs Weight 196.122 kg Physical Exam Const: COMMON NORMALS: patient oriented x3 HENMT: COMMON NORMALS: normocephalic and atraumatic HEAD & SCALP: normocephalic and atraumatic Resp: EFFORT & INSPECTION: Yes symmetric chest movement OTHER: Diminished air entry at bases, minimal rt basal crackles present. Cardio: COMMON NORMALS: regular rate, regular rhythm, S1 normal heart sound present, S2 normal heart sound present, No gallops present (Cardio), No murmurs present (Cardio), No rub (Cardio) and Peripheral pulses 2+ throughout RATE: regular rate RHYTHM: regular rhythm HEART SOUNDS: S1 normal heart sound present and S2 normal heart sound present PERIPHERAL PULSES: Peripheral pulses 2+ throughout GI: COMMON NORMALS: Normal to inspection, nondistended, normoactive bowel sounds present, Soft to palpation, non-tender, No hepatosplenomegaly present and no masses AUSCULTATION: Yes normoactive bowel sounds PALPATION: Yes Soft to palpation and Yes No hepatosplenomegaly present RECTAL EXAM: deferred Extremity: COMMON NORMALS: no clubbing, cyanosis or edema and no pedal edema Neuro: COMMON NORMALS: patient oriented x3 Urinary Catheter Management^: 2-way Urethral Latex Free: Cath Placed During This Visit: yes Reason for Continuing Indwelling Catheter: Other Urinary Catheter Date of Insertion: 08/07/21 Urinary Catheter Time of Insertion: 12:00 Data : 08/09/21 05:40 08/09/21 05:40 Micro: Microbiology 08/07/21 11:50 Urine Culture - Final Urine,Clean Catch 08/07/21 11:42 Blood Culture - Preliminary Blood NEGATIVE TO DATE 08/07/21 11:42 Blood Culture - Preliminary Blood NEGATIVE TO DATE A&P Assessment and plan (1) Pneumonia due to COVID-19 virus: Pneumonia due to COVID-19 virus. X-ray chest: Blood culture:NTD Urine culture: No growth ESR: CRP:60 D-dimer:0.87 Ferritin:1273 Fibrinogen:440 LDH: Dexamethasone 6 mg IV daily for 10 days Remdesivir for 3 - 5 days Duo nebs Advair inhaler Pulmonary toilet Empirically on ceftriaxone and doxycycline Lovenox 40 mg subcu every 12 hours daily I/O Charting Lasix as needed. Supplemental oxygen as needed. incentive spirometer and flutter valve Possible pulmonary consult Status: Acute (2) Essential hypertension: Continue lisinopril 10 mg p.o. daily,hctz 25 mg po daily Status: Acute Attestations Medical Necessity Statement*: Patient is to be in the hospital for management of pneumonia. Coding Level of Care Code Acute Rotary Saw Operator for [facility] Fwd Exam Detailed Diagnoses Pneumonia due to COVID-19 virus U07.1; J12.82 Essential hypertension I10
--- NOTE | 2021-08-09 14:20 | PC.CHAP ---
Pastoral Care Encounter/Spiritual Assessment Type of Contact [] Declined sign writer letterer or painter visit [] Patient/Family/Request visit [] Outpatient visit [] Follow-up visit [] Physician referral [] Code/Alert [] Routine visit [] Staff referral [] Actively dying [] Patient sleeping [] Family support [] [] Out of room [] Palliative care [] [] Receiving care in room [] Pre-surgical visit [] Trauma [] Long length of stay [] ICU visit [xx] Other: ISOLATION Relational/Emotional Strength [] Patient feels connected with others/family/visitors/staff [] Distress [] Loneliness/isolation [] Abandonment Spirituality of Patient [] Person of Radha [] Attends Sikhism of their Radha [] Believes in Prayer [] Reads Bible or Synagogue materials [] There are Spiritual issues to be addressed Management Trainee Program Stores Interventions [] Prayer [] Active listening [] Non-anxious presence [] Spiritual/emotional support [] Crisis/trauma care [] Spiritual counseling [] Bereavement support [] Provided bereavement packet [] Provided Bible/devotional materials [] Provided toy/stuffed animal, coloring book to patient or family member [] Provided Communion [] Anointing/[place] [] Salvation [] Completed spiritual assessment [] Other: Impact on Illness or Injury [] Angry [] Fearful [] Anxious [] Often cries [] Exhaustion [] Unable to work [] Unable to attend shinto [] Unable to walk/stand [] Unable to read [] Unable to drive [] Unable to eat/drink [] Unable to sleep [] Unable to be with family [] Patient intubated [] Other: Summary Time spent with patient
[2021-08-09 17:07] LABS: Coronavirus Test Green County Detected
[2021-08-09] MEDS: dexamethasone 4 mg/mL INJ 6 MG IVP (18:13)
[2021-08-09] MEDS: remdesivir 100 MG in sodium chloride 0.9% (100 ml) 80 ML IV (21:49)
[2021-08-09] MEDS: trazodone 50 mg Tablet PO (21:50)
[2021-08-09] MEDS: cefTRIAXone 1,000 MG in sodium chloride 0.9% (plus) 50 ML 100 MG IV (23:35)
[2021-08-10] VITALS (10 sets, daily range): BP systolic 97–108; BP diastolic 61–70; PULSE 75–88; RESP 17–20; TEMP 36.4–36.8; O2SAT 88–94
[2021-08-10] MEDS: albuterol 8 gm MDI 2 PUFF INHALATION ×3 (03:26→11:18)
[2021-08-10] MEDS: doxycycline 100 MG in sodium chloride 0.9% (plus) 100 ML IV (05:17)
[2021-08-10] MEDS: enoxaparin 40 mg/0.4 mL Syringe SUBCUT (05:17)
[2021-08-10] MEDS: hydroCHLOROthiazide 25 mg Tablet PO (06:17)
[2021-08-10 06:51] LABS: Hematocrit 40.7 % (37.0-47.0); Hemoglobin 13.4 g/dL (11.5-15.3); Lymphocytes # 1.1 10^3/uL (0.8-4.8); Lymphocytes % 20.6 %; Mean Corpuscular HGB Conc 32.9 g/dL (30.0-36.0); Mean Corpuscular Hemoglobin 28.8 pg (28.0-34.0); Mean Corpuscular Volume 87.5 fl (81-99); Mean Platelet Volume 11.3 fL (7.4-10.4); Monocytes # 0.7 10^3/uL (0.2-0.9); Monocytes % 12.9 %; Neutrophils # 3.51 10^3/uL (1.8-7.7); Neutrophils % 65.8 %; Nucleated Red Blood Cells % 0 %; Platelet Count 196 10^3/cmm (130-400); Red Blood Count 4.65 10^6/uL (4.1-5.3); White Blood Count 5.3 10^3/uL (4.0-10.0)
[2021-08-10 07:08] LABS: D Dimer 0.98 ug/mIFEU (0-0.59)
[2021-08-10 07:14] LABS: Alanine Aminotransferase 22 U/L (0-33); Albumin Level 3.3 g/dL (3.5-5.2); Alkaline Phosphatase 61 IU/L (35-105); Anion Gap 15.9 (5-19); Aspartate Amino Transferase 58 U/L (0-32); Blood Urea Nitrogen 15 mg/dL (6-20); C Reactive Protein 54.4 mg/L (0.0-4.9); Calcium 8.2 mg/dL (8.5-10.5); Carbon Dioxide 23 mmol/L (22-29); Chloride 101 mmol/L (98-107); Globulin 3.3 g/dL (1.3-4.6); Glomerular Filtration Rate 87.9 mL/min (90-130); Glucose 179 mg/dL (65-115); Osmolality Calculated 287 mOsm/kg (285-295); Potassium 3.9 mmol/L (3.5-5.1); Sodium 136 mmol/L (136-145); Total Bilirubin 0.3 mg/dL (0.15-1.2); Total Protein 6.6 g/dL (6.6-8.7)
[2021-08-10 07:29] LABS: Ferritin 1430 ng/mL (15-150)
[2021-08-10 07:33] LABS: Slide Review Slide Review Perform
[2021-08-10] MEDS: lisinopril 10 mg Tablet PO (09:55)
[2021-08-10] MEDS: zinc gluconate 50 mg Tablet PO (09:55)
[2021-08-10] MEDS: ascorbic acid 500 mg Tablet 1000 MG PO (09:55)
--- NOTE | 2021-08-10 12:17 | P.DS_ITS ---
Discharge Providers Date of Admission: 08/07/21 14:38 Date of Discharge: August 10, 2021 Attending Provider at Admission: Torres Griffin MD Attending Provider at Discharge: Torres Griffin MD Primary Care Provider: RAND Mares Diagnoses at Discharge Discharge Diagnosis (1) Pneumonia due to COVID-19 virus: Status: Acute (2) Essential hypertension: Status: Acute Reason for Visit Reason for Visit: COVID COUGH Hospital Course Hospital Course Estephania Beltre is a 50 year old female with past medical history of hypertension and morbid obesity came in with chief complaint of fever , cough , and generalized weakness, generalized body pain, shortness of breath ,going on for the last 3 to 4 days. Upon arrival in the ER, she was worked up for above mention, complain. Pertaining imaging study: XR chest :Bilateral pulmonary infiltrates.Rapid Covid antigen: Positive. She was admitted for the management of Covid pneumonia, during the hospital stay she was kept on Covid protocol, she received 4 days of remdesivir IV dexamethasone, empirically was on antibiotic, supplemental oxygen as needed, nebs, inflammatory markers were trended Imaging studies were done,and other conservative respiratory support measures.Patient responded well to above medical management at the time of discharge she had qualified for 4 L home oxygen on exertion. She is being discharged in stable condition to home on on additional 7 days of 2 mg p.o. dexamethasone, vitamin C , zinc, albuterol inhaler. Patient will continue to follow the primary care physician as an outpatient Physical Exam Const: COMMON NORMALS: patient oriented x3 HENMT: COMMON NORMALS: normocephalic and atraumatic HEAD & SCALP: normocephalic and atraumatic Resp: COMMON NORMALS: clear to auscultation bilaterally EFFORT & INSPECTION: Yes symmetric chest movement AUSCULTATION: clear to auscultation bilaterally OTHER: Diminished air entry at bases, Cardio: COMMON NORMALS: regular rate, regular rhythm, S1 normal heart sound present, S2 normal heart sound present, No gallops present (Cardio), No murmurs present (Cardio), No rub (Cardio) and Peripheral pulses 2+ throughout RATE: regular rate RHYTHM: regular rhythm HEART SOUNDS: S1 normal heart sound present and S2 normal heart sound present PERIPHERAL PULSES: Peripheral pulses 2+ throughout GI: COMMON NORMALS: Normal to inspection, nondistended, normoactive bowel sounds present, Soft to palpation, non-tender, No hepatosplenomegaly present and no masses AUSCULTATION: Yes normoactive bowel sounds PALPATION: Yes Soft to palpation and Yes No hepatosplenomegaly present RECTAL EXAM: deferred Extremity: COMMON NORMALS: no clubbing, cyanosis or edema and no pedal edema Neuro: COMMON NORMALS: patient oriented x3 Urinary Catheter Management^: 2-way Urethral Latex Free: Cath Placed During This Visit: yes Reason for Continuing Indwelling Catheter: Other Urinary Catheter Date of Insertion: 08/07/21 Urinary Catheter Time of Insertion: 12:00 Discharge Data Data Completed and Pending: Completed Studies During Hospitalization Category Date Time Status XR chest 1V chela ble [id number] Stat Exams 08/07/21 11:13 Completed Pending at discharge Category Date Time Status Blood Culture Rou adrián Lab 08/07/21 11:42 Results C Reactive Protei n AM LABS Lab 08/11/21 04:00 Ordered D Dimer AM LABS Lab 08/11/21 04:00 Ordered Erythrocyte Sedim entation Rate AM L ABS Lab 08/09/21 05:40 Received Erythrocyte Sedim entation Rate AM L ABS Lab 08/10/21 06:30 Received Erythrocyte Sedim entation Rate AM L ABS Lab 08/11/21 04:00 Ordered Ferritin AM LABS Lab 08/11/21 04:00 Ordered Labs from last 24 hours 08/10/21 08/10/21 08/10/21 06:30 06:30 06:30 WBC RBC Hgb Hct MCV MCH MCHC RDW Plt Count MPV Neut % (Auto) Lymph % (Auto) [place] % (Auto) Eos % (Auto) Baso % (Auto) Neut # (Auto) Lymph # (Auto) [place] # (Auto) Eos # (Auto) Baso # (Auto) Nucleated RBC % (a uto) Nucleated RBCs # ESR Pending D-Dimer 0.98 H Sodium 136 Potassium 3.9 Chloride 101 Carbon Dioxide 23 Anion Gap 15.9 BUN 15 Creatinine 0.7 GFR Calculation 87.9 L Glucose 179 H Calculated Osmolal ity 287 Calcium 8.2 L Ferritin 1430 H Total Bilirubin 0.3 AST 58 H ALT 22 Alkaline Phosphata se 61 C-Reactive Protein 54.4 H Total Protein 6.6 Albumin 3.3 L Globulin 3.3 Nasal/Oral COVID-1 9 PCR 08/10/21 08/07/21 06:30 11:05 WBC 5.3 RBC 4.65 Hgb 13.4 Hct 40.7 MCV 87.5 MCH 28.8 MCHC 32.9 RDW 14.0 Plt Count 196 MPV 11.3 H Neut % (Auto) 65.8 Lymph % (Auto) 20.6 [place] % (Auto) 12.9 Eos % (Auto) 0.0 Baso % (Auto) 0.0 Neut # (Auto) 3.51 Lymph # (Auto) 1.1 [place] # (Auto) 0.7 Eos # (Auto) 0.0 Baso # (Auto) 0.0 Nucleated RBC % (a uto) 0 Nucleated RBCs # 0.0 ESR D-Dimer Sodium Potassium Chloride Carbon Dioxide Anion Gap BUN Creatinine GFR Calculation Glucose Calculated Osmolal ity Calcium Ferritin Total Bilirubin AST ALT Alkaline Phosphata se C-Reactive Protein Total Protein Albumin Globulin Nasal/Oral COVID-1 9 PCR Detected H Vitals: Last Vital Signs Temp 98.2 F 08/10/21 11:50 Pulse 85 08/10/21 11:50 Resp 18 08/10/21 11:50 BP 97/61 08/10/21 11:50 Pulse Ox 88 L 08/10/21 11:19 Discharge Plan Discharge Patient Disposition: Home Condition: Stable Prescriptions: New Vitamin C 500 mg Tablet 1,000 mg PO BID 7 Days Qty: 28 RF: 0 benzonatate 100 mg Capsule 200 mg PO TID PRN (Reason: Cough) 7 Days Qty: 21 RF: 0 zinc gluconate 50 mg Tablet 50 mg PO DAILY 7 Days Qty: 7 RF: 0 dexamethasone 2 mg tablet 2 mg PO DAILY Qty: 7 RF: 0 Continued hydrochlorothiazide 25 mg tablet 25 mg PO QAM Qty: 90 RF: 1 acetaminophen 500 mg Tablet 500 mg PO Q4H PRN (Reason: Pain) RF: 0 albuterol sulfate 2.5 mg /3 mL (0.083 %) solution for nebulization 2.5 mg inhalation QID PRN (Reason: Shortness Of Breath) RF: 0 trazodone 50 mg tablet 50 mg PO BEDTIME RF: 0 Allergy Relief (cetirizine) 10 mg tablet 10 mg PO QAM RF: 0 lisinopril 10 mg tablet 10 mg PO QAM RF: 0 montelukast 10 mg tablet 10 mg PO QAM RF: 0 ergocalciferol (vitamin D2) 1,250 mcg (50,000 unit) capsule 50,000 unit PO Q7D RF: 0 fluticasone propionate 50 mcg/actuation spray,suspension 2 spray intranasal DAILY RF: 0 melatonin 10 mg capsule 10 mg PO BEDTIME RF: 0 Changed ProAir HFA 90 mcg/actuation HFA aerosol inhaler 2 puff INHALATION QID PRN (Reason: Shortness Of Breath) 30 Days RF: 0 Discharge Orders: Discharge Order (Routine); Ordered 08/10/21 Ordered By: Torres Griffin Other Ambulatory Orders: DME: Oxygen (Order) Location: None Selected Ordered By: Torres Griffin Referrals: Minerva Jefferson FNP [Primary Care Provider] - 2 weeks (Please follow up with your primary care provider within two weeks.) Discharge Diet: Regular Discharge Activity: Increase activity as tolerated Patient Instructions: Benzonatate (By mouth), Dexamethasone (By mouth), Zinc Supplement (By mouth), Hypoxia (GEN), Opioid Safety, Using Oxygen at Home Discharge Attestations Time Spent in Discharge Care*: less than 30 min Specific Discharge Activities: educating patient, educating and/or supporting family/caregiver, discussing with pcp/other providers, discussing with correctional counselor/case manager/social workers/dc planners, documenting/other paperwork and evaluating patient/reviewing data Status at Discharge: Behavioral status at discharge: cooperative , Functional status at discharge: independent ambulation Overall status at discharge: patient is progressing back to baseline Quality Metrics Clinical Quality Measures During this hospital stay, did patient experience: None Coding Level of Care Code Acute Chg FW DC note Diagnoses Pneumonia due to COVID-19 virus U07.1; J12.82 Essential hypertension I10
[2021-08-10] MEDS: remdesivir 100 MG in sodium chloride 0.9% (100 ml) 80 ML IV (12:25)
[2021-08-12 11:28] LABS: Erythrocyte Sedimentation Rate 6 mm/hr (0-15)
[2021-08-13 20:12] LABS: Erythrocyte Sedimentation Rate 6 mm/hr (0-15)
== END 2021-08-10 17:00 | disposition home or self-care (01) | DRG 177 ==
LOC: ER 13:11 → MEDSURG 14:49
PROVIDERS: Admitting Provider Internal Medicine; Emergency Provider Emergency Medicine; PCP Nurse Practitioner Family; Visit Provider Internal Medicine
DX: U07.1 COVID-19 (principal); J12.82 Pneumonia due to coronavirus disease 2019; Z68.45 Body mass index [BMI] 70 or greater, adult; I10 Essential (primary) hypertension; E66.01 Morbid (severe) obesity due to excess calories; R09.02 Hypoxemia
CPT/HCPCS: 36415; 36600; 51702; 71045; 80053; 81001; 81003; 82728; 82803; 83605; 83735; 83880; 84145; 84484; 85025; 85378; 85384; 85610; 85651; 85730; 86140; 87040; 87086; 87426; 87635; 87804; 93005; 94640; 96365; 96367; 96372; 96375; 99285; J0696; J1100; J1650; J2405; J3010; J3490; J3535; J7040

== ENCOUNTER 2021-08-11 16:31 | Inpatient (IN) | payer MEDICAID, SELFPAY ==
[2021-08-11 16:34] VITALS: TEMP 36.4; BMI 74.4
[2021-08-11 16:43] VITALS: BP 115/78; PULSE 97; RESP 31; TEMP 36.5; O2SAT 84
--- NOTE | 2021-08-11 16:54 | XRR_ITS ---
PROCEDURE INFORMATION: Exam: XR Chest Exam date and time: 08/11/2021 4:54 PM Age: 50 years old Clinical indication: Shortness of breath; Additional info: Increased SOB TECHNIQUE: Imaging protocol: XR of the chest. Views: 1 view. COMPARISON: CR XR chest 1V portable [id number] 08/07/2021 12:21 PM FINDINGS: Lungs: Moderate to severe peripheral and bibasilar opacities most consistent with pneumonia. Pleural spaces: Unremarkable. No pleural effusion. No pneumothorax. Heart/Mediastinum: Unremarkable. No cardiomegaly. Bones/joints: Unremarkable. XR/XR chest 1V portable [id number] IMPRESSION: Moderate to severe peripheral and bibasilar opacities most consistent with pneumonia. Radiation Dose CTDIVOL = (mGy): DLP = (mGy-cm)
--- NOTE | 2021-08-11 16:56 | W.ED.SOB ---
HPI - SOB/Dyspnea General: Chief Complaint: Shortness of Breath/Dyspnea Stated Complaint: RESP DISTRESS Time Seen by Provider: 08/11/21 16:48 History of Present Illness: HPI Narrative: This patient returns to the emergency department because of increasing shortness of breath. She has known COVID-19 disease. She was recently discharged in the hospital yesterday on home oxygen at 4 L. She states that despite using home oxygen she has become increasingly short of breath. She was transported be by EMS with a nonrebreather in place. She states she has been drinking some fluids but has not been able to eat. She does have a history of hypertension as well as morbid obesity. She is unimmunized against COVID-19. She received usual therapy for acute COVID-19 while in the hospital. elicited complaint: shortness of breath Timing: constant Relieving factors: oxygen Associated symptoms: Deny abdominal pain, chest pain, extremity pain, fever(s), nausea, palpitations, polydipsia, polyuria or vomiting Review of Systems Const: Reports: fatigue; Denies: fever(s) or chills Eyes: Denies: change in vision ENMT: Denies: throat pain or hoarseness Card: Denies: chest pain or palpitations Resp: Reports: dyspnea and non-productive cough GI: Denies: abdominal pain, nausea or vomiting : Denies: flank pain or difficulty voiding Musc: Denies: neck pain, back pain, extremity pain or extremity swelling Skin/Breast: Denies: rash Neuro: Denies: headache(s) Psych: Reports: anxiety Endo: Denies: polyuria or polydipsia Jase/Lymph: Denies: easy bruising or easy bleeding [facility] PFSH: Medical History COVID-19 Essential hypertension Hypoxemia Pneumonia due to COVID-19 virus Thyroid cyst Surgical History Hx of cholecystectomy Hx of tubal ligation Family History Brother CAD (coronary artery disease) [place] age 29 Diabetes Sister CAD (coronary artery disease) Son CAD (coronary artery disease) Father Cancer Mother Cancer Social History Second hand smoke exposure: No Alcohol intake: never Caregiver/support person: Yes Lives independently: Yes Household members: spouse and children Marital status: service: No Current occupational status: disabled History of recent travel: No Current gender identity: Female Special maeve needs: No Agree to transfusion: Yes Physical Exam Const: COMMON NORMALS: patient oriented x3 and alert GENERAL APPEARANCE: anxious NUTRITIONAL APPEARANCE: overweight ORIENTATION/CONSCIOUSNESS: Yes awake HENMT: COMMON NORMALS: normocephalic and atraumatic HEAD & SCALP: normocephalic and atraumatic MOUTH: Normal oral and palatal mucosa present OTHER: Mask per protocol Eye: COMMON NORMALS: Equal, round and reactive pupils present, EOMs intact bilaterally and no scleral icterus PUPIL: Yes Equal, round and reactive pupils present Neck/C-Spine: COMMON NORMALS: full ROM, no lymphadenopathy, supple and no JVD Chest: COMMONS NORMALS: normal inspection of the chest Resp: EFFORT & INSPECTION: Yes tachypneic, Yes respiratory distress and Yes labored AUSCULTATION: crackles and rhonchi Cardio: COMMON NORMALS: no JVD, regular rhythm, No murmurs present (Cardio) and Peripheral pulses 2+ throughout RATE: tachycardic RHYTHM: regular rhythm PERIPHERAL PULSES: Peripheral pulses 2+ throughout GI: COMMON NORMALS: Normal to inspection, nondistended, normoactive bowel sounds present, Soft to palpation and non-tender PALPATION: Yes Soft to palpation : COMMON NORMALS: Yes no CVA tenderness BLADDER/KIDNEY EXAM: Yes no CVA tenderness Back/Pelvis: COMMON NORMALS: no CVA tenderness, no thoracic nor lumbar tenderness and thoraco-lumbar ROM normal Extremity: COMMON NORMALS: normal to inspection, capillary refill normal, no joint enlargement, no clubbing, cyanosis or edema and no calf tenderness Neuro: COMMON NORMALS: patient oriented x3, moves all extremities, no focal motor deficits and no sensory deficits noted SENSORIUM/ORIENTATION: Yes alert Psych: COMMON NORMALS: mental status grossly normal MOOD & AFFECT: Yes anxious Course Reevaluation(s): Reevaluation #1: She is currently is at 94% on pulse oximetry on high flow nasal cannula. Patient had spontaneous expectoration of sputum which was sent for Gram stain and culture Time: 18:29 Reevaluation #2: Hospitalist came to see the patient and write admission orders. Consultations: Consultation #1: I discussed with the hospitalist who acknowledged our discussion and agreed to accept the patient. Vital Signs: Vital signs: Vital Signs Temperature 97.7 F 08/11/21 16:43 Pulse Rate 90 08/11/21 17:30 Respiratory Rate 29 H 08/11/21 17:30 Blood Pressure 111/78 08/11/21 17:30 Pulse Oximetry 91 08/11/21 17:30 MDM - SOB/Dyspnea Lab Data: Labs: Lab Results 08/11/21 08/11/21 08/11/21 17:23 17:38 17:38 D-Dimer 2.36 ug/mIFEU H u g/mIFEU (0-0.59) Specimen Type Arterial Sample Site Radial, right ABG pH 7.46 H (7.35-7.45) ABG pCO2 40.1 mmHg mmHg (35-45) ABG pO2 62.4 mmHg L mmHg (80.0-100.0) ABG HCO3 28.6 mmol/L H mmo l/L (22-26) ABG Base Excess 4.5 mmol/L H mmol /L (-2.0-2.0) [place]ille Test Pos Hematocrit 44.3 % % (37-47) Hgb O2 Saturation 92.6 % L % (95-100) Carboxyhemoglobin 0.6 %THgb %THgb (0.4-20.1) Methemoglobin 0.7 % % (0.4-1.5) Total Hemoglobin 14.5 g/dL g/dL (12-16) O2 Delivery Device Nc O2 Liters/Min 40.0 % % FiO2 70.0 % % Engraver Seals ID [place] Sodium 136 mmol/L mmol/L (136-145) Potassium 4.1 mmol/L mmol/L (3.5-5.1) Chloride 99 mmol/L mmol/L (98-107) Carbon Dioxide 24 mmol/L mmol/L (22-29) Anion Gap 17.1 (5-19) BUN 18 mg/dL mg/dL (6-20) Creatinine 0.7 mg/dL mg/dL (0.5-0.9) GFR Calculation 87.9 mL/min L mL/ min (90-130) Glucose 168 mg/dL H mg/dL (65-115) Calculated Osmolal ity 288 mOsm/kg mOsm/ kg (285-295) Calcium 8.1 mg/dL L mg/dL (8.5-10.5) Magnesium 1.9 mg/dL mg/dL (1.7-2.3) Total Bilirubin 0.5 mg/dL mg/dL (0.15-1.2) AST 52 U/L H U/L (0-32) ALT 24 U/L U/L (0-33) Alkaline Phosphata se 63 IU/L IU/L (35-105) C-Reactive Protein 130.8 mg/L H mg/L (0.0-4.9) Total Protein 6.4 g/dL L g/dL (6.6-8.7) Albumin 2.9 g/dL L g/dL (3.5-5.2) Globulin 3.5 g/dL g/dL (1.3-4.6) Discharge Plan Discharge Patient Disposition: Admitted As Inpatient Clinical Impression: 2019 novel coronavirus-infected pneumonia (NCIP), Hypoxia Condition: Serious Coding Level of Care Code ED Wastewater Treatment Engineer for [facility] Fwd Exam Comprehensive
[2021-08-11 17:20] VITALS: PULSE 90; RESP 22; O2SAT 94
[2021-08-11 17:30] VITALS: BP 111/78; PULSE 90; RESP 29; O2SAT 91
[2021-08-11 17:35] LABS: ABG PCO2 40.1 mmHg (35-45); ABG PH Result 7.46 (7.35-7.45); Arterial Blood Gas Hematocrit 44.3 % (37-47); Base Excess ABG 4.5 mmol/L (-2.0-2.0); Blood Gas Allen Test Pos; Blood Gas Sample Type Arterial; Carboxyhemoglobin 0.6 %THgb (0.4-20.1); HCO3 ABG 28.6 mmol/L (22-26); HGB O2 Sat 92.6 % (95-100); Methemoglobin 0.7 % (0.4-1.5); PO2 ABG 62.4 mmHg (80.0-100.0); Total Hemoglobin 14.5 g/dL (12-16)
[2021-08-11 17:36] LABS: Blood Gas Operator Identificat MONRO; Blood Gas Sample Site Radial, right; Oxygen Device NC
[2021-08-11] MEDS: dexamethasone 10 mg/mL INJ 6 MG IVP (17:40)
[2021-08-11 17:51] LABS: Basophils % 0.1 %; Hematocrit 42.5 % (37.0-47.0); Hemoglobin 14.1 g/dL (11.5-15.3); Lymphocytes # 1.1 10^3/uL (0.8-4.8); Lymphocytes % 13.3 %; Mean Corpuscular HGB Conc 33.2 g/dL (30.0-36.0); Mean Corpuscular Volume 87.4 fl (81-99); Mean Platelet Volume 12.3 fL (7.4-10.4); Monocytes # 0.9 10^3/uL (0.2-0.9); Monocytes % 11.1 %; Neutrophils # 6.04 10^3/uL (1.8-7.7); Neutrophils % 73.9 %; Nucleated Red Blood Cells % 0 %; Platelet Count 171 10^3/cmm (130-400); Red Blood Count 4.86 10^6/uL (4.1-5.3); Red Cell Distribution Width 13.8 % (12.1-15.1); White Blood Count 8.2 10^3/uL (4.0-10.0)
[2021-08-11 18:06] LABS: D Dimer 2.36 ug/mIFEU (0-0.59)
--- NOTE | 2021-08-11 18:16 | P.HP_ITS ---
Providers/Chief Complaint Primary Care Provider: RAND Mares Chief Complaint: RESP DISTRESS History of Present Illness Pleasant 50-year-old lady just discharged yesterday after admission and treatment for COVID-19, having received 4 days of treatment with Decadron, dysuria, empiric antibiotics, breathing treatments and supportive care, was discharged home on 4 L of oxygen with additional 7 days of 2 mg of Decadron, returns to the hospital due to progressive dyspnea, even with minimal exertion, severe fatigue, nausea, cough. Denies productive cough. Denies chest pain or pressure. No hemoptysis. CODE STATUS is full. She is okay for intubation mechanical ventilation if needed. Her is currently in our ICU in critical condition and transitioning to comfort measures. In case she were not able to make decisions for herself, she names her 6 children as surrogate decision-makers. Review of Systems Const: Reports: fatigue and malaise; Denies: body aches Eyes: Denies: change in vision or eye redness ENMT: Denies: throat pain, oral sores or ear or mastoid pain Card: Reports: dyspnea on exertion; Denies: chest pain, edema or pre-syncope Resp: Reports: dyspnea and non-productive cough; Denies: productive cough, change in phlegm color or hemoptysis GI: Reports: nausea; Denies: abdominal pain, vomiting, diarrhea, constipation, hematochezia or melena : Denies: flank pain, urinary frequency or hematuria Musc: Denies: back pain, joint swelling or joint redness Skin/Breast: Denies: rash, sores or new lesions Neuro: Denies: headache(s), numbness in extremities, weakness in extremities, dizziness, confusion or seizure-like activity Endo: Denies: polyuria or polydipsia Jase/Lymph: Denies: easy bleeding or purpura All/Imm: Denies: urticaria, throat swelling or tongue swelling Medications/Allergies Home Medications Medication Instructions Recorded Confirmed Last Taken Type hydrochlorothiazide 25 mg tablet 25 mg PO QAM #90 tab 05/21/21 08/11/21 08/11/21 Rx acetaminophen 500 mg PO Q4H PRN 08/07/21 08/11/21 08/07/21 06:00 History albuterol sulfate 2.5 mg INHALATION QID PRN 08/07/21 08/11/21 Unknown History cetirizine [Allergy Relief 10 mg PO QAM 08/07/21 08/11/21 08/10/21 History (cetirizine)] ergocalciferol (vitamin D2) 50,000 unit PO Q7D 08/07/21 08/11/21 08/05/21 History fluticasone propionate 2 spray INTRANASAL DAILY 08/07/21 08/11/21 08/06/21 H istory lisinopril 10 mg PO QAM 08/07/21 08/11/21 08/11/21 History melatonin 10 mg PO BEDTIME 08/07/21 08/11/21 08/10/21 History montelukast 10 mg PO QAM 08/07/21 08/11/21 08/11/21 History trazodone 50 mg PO BEDTIME 08/07/21 08/11/21 08/10/21 History albuterol sulfate [ProAir HFA] 2 puff INHALATION QID PRN 30 Days 08/10/21 08/11/21 Unknown Rx g ascorbic acid (vitamin C) [Vitamin 1,000 mg PO BID 7 Days #28 tab 08/10/21 08/11/21 08/11/21 Rx C] benzonatate 200 mg PO TID PRN 7 Days #21 cap 08/10/21 08/11/21 08/11/21 Rx dexamethasone 2 mg PO DAILY #7 tab 08/10/21 08/11/21 08/11/21 Rx zinc gluconate 50 mg PO DAILY 7 Days #7 tab 08/10/21 08/11/21 08/11/21 Rx Allergies Allergy/AdvReac Type Severity Reaction Status Date / Time aspirin Allergy Unknown RASH Verified 08/07/21 13:45 dextromethorphan Allergy Unknown RASH Verified 08/07/21 13:45 [From Entex PAC] erythromycin base Allergy Unknown Unknown Verified 08/07/21 13:45 guaifenesin [From Entex PAC] Allergy Unknown RASH Verified 08/07/21 13:45 ibuprofen Allergy Unknown RASH Verified 08/07/21 13:45 Penicillins Allergy Unknown Unknown Verified 08/07/21 13:45 pseudoephedrine Allergy Unknown RASH Verified 08/07/21 13:45 [From Entex PAC] tramadol [From Ultram] Allergy Unknown RASH Verified 08/07/21 13:45 Influenza Virus Vaccines Allergy Unknown Verified 08/07/21 13:45 pneumococcal vaccine Allergy Unknown Verified 08/07/21 13:45 PFSH Acute PFSH: Medical History COVID-19 Essential hypertension Hypoxemia Pneumonia due to COVID-19 virus Thyroid cyst Surgical History Hx of cholecystectomy Hx of tubal ligation Family History Brother CAD (coronary artery disease) [place] age 29 Diabetes Sister CAD (coronary artery disease) Son CAD (coronary artery disease) Father Cancer Mother Cancer Social History Second hand smoke exposure: No Alcohol intake: never Caregiver/support person: Yes Lives independently: Yes Household members: spouse and children Marital status: service: No Current occupational status: disabled History of recent travel: No Current gender identity: Female Special maeve needs: No Agree to transfusion: Yes Vitals/I&O/Wt Last Vital Signs Temp 97.7 F 08/11/21 16:43 Pulse 90 08/11/21 17:20 Resp 22 H 08/11/21 17:20 BP 115/78 08/11/21 16:43 Pulse Ox 94 08/11/21 17:20 Weight last 48 hrs Weight 190.509 kg Physical Exam Const: COMMON NORMALS: no acute distress, patient oriented x3 and alert GENERAL APPEARANCE: cooperative and ill appearing; not comfortable NUTRITIONAL APPEARANCE: obese morbidly obese ORIENTATION/CONSCIOUSNESS: Yes awake HENMT: COMMON NORMALS: oropharynx normal Neck/C-Spine: COMMON NORMALS: no JVD Resp: COMMON NORMALS: normal respiratory effort and clear to auscultation bilaterally AUSCULTATION: clear to auscultation bilaterally Cardio: COMMON NORMALS: no JVD, regular rhythm, S1 normal heart sound present, S2 normal heart sound present and No murmurs present (Cardio) RHYTHM: regular rhythm HEART SOUNDS: S1 normal heart sound present and S2 normal heart sound present GI: COMMON NORMALS: Normal to inspection, nondistended, normoactive bowel sounds present, Soft to palpation and non-tender PALPATION: Yes Soft to palpation Extremity: COMMON NORMALS: no joint enlargement and no pedal edema Neuro: COMMON NORMALS: patient oriented x3 and moves all extremities Skin: COMMON NORMALS: no rashes or lesions noted GENERAL SKIN EXAM: no rashes or lesions noted Data : 08/11/21 17:38 08/11/21 17:38 A&P Assessment and plan (1) Respiratory failure with hypoxia: Significant dyspnea despite using oxygen at home, was discharged on 4 L. Dyspnea with minimal exertion. Continued dry cough. Malaise. Severe fatigue. Required nonrebreather during transport. In ER initially started on CPAP 70% FiO2. Transitioning to HHS. Labs are pending. Decadron is restarted. Discussed with her consideration of baricitinib if we are not seeing evidence of bacterial infection. Discussed risks and benefits. She is agreeable. Discussed with her risks and benefits of Lovenox VT prophylaxis, Lovenox 40 mg twice daily due to BMI. Reassess D-dimer, CRP. Supportive care. Antitussives. Status: Acute (2) 2019 novel coronavirus-infected pneumonia (NCIP): Return to the hospital after recent after 4 days of treatment, discharged yesterday. As above. Status: Acute (3) Elevated d-dimer: Secondary to COVID-19. Recheck level. Status: Acute (4) Transaminitis: Minimal, secondary to COVID-19. Status: Acute Additional A&P Information Morbid obesity Thyroid cyst Attestations Medical Necessity Statement*: Admission of over 2 midnights is going to be needed for assessment management of hypoxic respiratory failure secondary to severe COVID-19. Coding Level of Care Code Acute Industrial Cook for [facility] Fwd Exam Comprehensive Diagnoses Respiratory failure with hypoxia J96.91 2019 novel coronavirus-infected pneumonia (NCIP) U07.1; J12.82 Elevated d-dimer R79.89 Transaminitis R74.01
[2021-08-11 18:17] LABS: Albumin Level 2.9 g/dL (3.5-5.2); Alkaline Phosphatase 63 IU/L (35-105); Blood Urea Nitrogen 18 mg/dL (6-20); C Reactive Protein 130.8 mg/L (0.0-4.9); Calcium 8.1 mg/dL (8.5-10.5); Carbon Dioxide 24 mmol/L (22-29); Chloride 99 mmol/L (98-107); Globulin 3.5 g/dL (1.3-4.6); Glomerular Filtration Rate 87.9 mL/min (90-130); Glucose 168 mg/dL (65-115); Magnesium 1.9 mg/dL (1.7-2.3); Osmolality Calculated 288 mOsm/kg (285-295); Sodium 136 mmol/L (136-145); Total Bilirubin 0.5 mg/dL (0.15-1.2); Total Protein 6.4 g/dL (6.6-8.7)
[2021-08-11 18:19] LABS: Alanine Aminotransferase 24 U/L (0-33); Anion Gap 17.1 (5-19); Aspartate Amino Transferase 52 U/L (0-32); Potassium 4.1 mmol/L (3.5-5.1)
[2021-08-11 18:37] LABS: Slide Review Slide Review Perform
[2021-08-11 18:50] LABS: Procalcitonin 0.16 ng/mL (0-0.5)
[2021-08-11 22:00] VITALS: PULSE 73
[2021-08-11 22:31] VITALS: BP 123/75; PULSE 80; RESP 34; TEMP 36.2; O2SAT 88
[2021-08-12] VITALS (25 sets, daily range): BP systolic 108–143; BP diastolic 70–91; PULSE 56–114; RESP 18–49; TEMP 36.3–36.9; O2SAT 85–97
[2021-08-12] MEDS: benzonatate 100 mg Capsule 200 MG PO ×4 (00:30→21:05)
[2021-08-12] MEDS: trazodone 50 mg Tablet PO ×2 (00:30→21:07)
[2021-08-12] MEDS: enoxaparin 40 mg/0.4 mL Syringe SUBCUT (00:31)
--- NOTE | 2021-08-12 01:48 | PC.NURSE ---
Patient complaints that her high flow alarm keeps beeping. Respiratory in to check and said that patient educated on not leaning on tubing as to that is why it is alarming.
[2021-08-12 05:20] LABS: Basophils % 0.3 %; Hematocrit 40.6 % (37.0-47.0); Hemoglobin 13.3 g/dL (11.5-15.3); Lymphocytes # 1.3 10^3/uL (0.8-4.8); Lymphocytes % 21.1 %; Mean Corpuscular HGB Conc 32.8 g/dL (30.0-36.0); Mean Corpuscular Hemoglobin 28.5 pg (28.0-34.0); Mean Corpuscular Volume 87.1 fl (81-99); Mean Platelet Volume 11.6 fL (7.4-10.4); Monocytes # 0.7 10^3/uL (0.2-0.9); Monocytes % 11.1 %; Neutrophils % 64.7 %; Nucleated Red Blood Cells % 0 %; Platelet Count 204 10^3/cmm (130-400); Red Blood Count 4.66 10^6/uL (4.1-5.3); Red Cell Distribution Width 13.7 % (12.1-15.1)
[2021-08-12] MEDS: hydroCHLOROthiazide 25 mg Tablet PO (05:50)
[2021-08-12] MEDS: cetirizine 10 mg Tablet PO (05:50)
[2021-08-12] MEDS: lisinopril 10 mg Tablet PO (05:50)
[2021-08-12] MEDS: montelukast sodium 10 mg Tablet PO (05:50)
[2021-08-12 06:01] LABS: Alanine Aminotransferase 21 U/L (0-33); Albumin Level 2.9 g/dL (3.5-5.2); Alkaline Phosphatase 63 IU/L (35-105); Aspartate Amino Transferase 40 U/L (0-32); Blood Urea Nitrogen 19 mg/dL (6-20); Carbon Dioxide 24 mmol/L (22-29); Chloride 99 mmol/L (98-107); Globulin 3.6 g/dL (1.3-4.6); Glomerular Filtration Rate 87.9 mL/min (90-130); Glucose 175 mg/dL (65-115); Osmolality Calculated 287 mOsm/kg (285-295); Sodium 135 mmol/L (136-145); Total Bilirubin 0.4 mg/dL (0.15-1.2); Total Protein 6.5 g/dL (6.6-8.7)
--- NOTE | 2021-08-12 06:07 | PC.NURSE ---
Frequent safety and comfort rounds continue. Orders and/or nursing care completed as indicated. Patient monitored for response to intervention and treatment(s). Education provided includes oxygen and high flow. Patient and/or media sales representative verbalizes understanding. Will continue to monitor.
[2021-08-12 06:24] LABS: Slide Review Slide Review Perform
[2021-08-12] MEDS: ascorbic acid 500 mg Tablet 1000 MG PO (08:51)
[2021-08-12] MEDS: fluticasone nasal spray 16gm Btl 2 SPRAY INTRANASAL (08:52)
[2021-08-12] MEDS: zinc gluconate 50 mg Tablet PO (08:52)
[2021-08-12] MEDS: dexamethasone 4 mg Tablet 2 MG PO (08:52)
--- NOTE | 2021-08-12 09:06 | USCV_ITS ---
Beltre Estephania Age: 50 Gender: F : 1970 Exam Date: 08/12/2021 14:35 Ordering Phys: Juan Agrawal MD Technologist: Henok Neri [place] [facility] [place]: A FIB BP: 138 / 84 HR: 92 Rhythm: Sinus Technical Quality: Technically difficult study MEASUREMENTS (Male / Female) Normal Values 2D ECHO LV Diastolic Diameter PLAX 4.3 cm 4.2 - 5.9 / 3.9 - 5.3 cm LV Systolic Diameter PLAX 2.7 cm IVS Diastolic Thickness 1.0 cm 0.6 - 1.0 / 0.6 - 0.9 cm IVS Systolic Thickness 1.2 cm LVPW Diastolic Thickness 1.3 cm 0.6 - 1.0 / 0.6 - 0.9 cm LVPW Systolic Thickness 1.8 cm LVOT Diameter 2.0 cm LV Ejection Fraction 2D Teich 65.7 % LV Ejection Fraction MOD 2C 64.3 % LV Ejection Fraction 2C AL 67.3 % LA Diameter 3.0 cm LA Width 3.3 cm LA Height 4.6 cm RA Width 4.5 cm RA Height 5.2 cm Aorta at Sinotubular Diameter 2.4 cm DOPPLER AV Peak Velocity 157.0 cm/s LVOT Peak Velocity 104.0 cm/s AV Area Cont Eq vti 2.0 cm squared AV Area Cont Eq pk 2.1 cm squared MV Area PHT 3.3 cm squared Mitral E to A Ratio 1.2 MV E' Velocity 45.0 cm/s Mitral E to MV E' Ratio 6.2 Mitral E to LV E' Lateral Ratio 4.9 Mitral E to LV E' Septal Ratio 8.6 Right Atrial Pressure 3.0 mmHg RV Acceleration Time 0.1 s RV Ejection Time 0.3 s RV AcT/ET 0.4 FINDINGS Left Ventricle Normal left ventricular size and systolic function, EF 67 %. No regional wall motion abnormalities. Right Ventricle Normal right ventricular size and systolic function. Right Atrium The right atrium is normal in size. Left Atrium The left atrium is normal in size. Mitral Valve No gross abnormalities noted Aortic Valve No gross abnormalities noted Tricuspid Valve No gross abnormalities noted Pulmonic Valve Not visualized well Pericardium Normal pericardium without effusion. Aorta Normal ascending aorta dimension. CONCLUSIONS Normal left ventricular size and systolic function, EF 67 %. No regional wall motion abnormalities. No significant stenotic or regurgitant lesions. There is no pericardial effusion. There are no intracardiac masses. Compared to the study from 02/19/2018, no significant change Dr Jose Tracy MD FACC (Electronically Signed) Final Date: 13 August 2021 19:20 S
--- NOTE | 2021-08-12 09:23 | PC.CHAP ---
Pastoral Care Encounter/Spiritual Assessment Type of Contact [] Declined bending machine set up operator visit [] Patient/Family/Request visit [] Outpatient visit [] Follow-up visit [] Physician referral [] Code/Alert [x] Routine visit [] Staff referral [] Actively dying [] Patient sleeping [] Family support [] [] Out of room [] Palliative care [] [] Receiving care in room [] Pre-surgical visit [] Trauma [] Long length of stay [] ICU visit [x] Other: covid Relational/Emotional Strength [] Patient feels connected with others/family/visitors/staff [] Distress [] Loneliness/isolation [] Abandonment Spirituality of Patient [] Person of Radha [] Attends Sabianist of their Radha [] Believes in Prayer [] Reads Bible or Zoroastrian materials [] There are Spiritual issues to be addressed Capital Markets Specialist Interventions [x] Prayer [x] Active listening [x] Non-anxious presence [x] Spiritual/emotional support [] Crisis/trauma care [] Spiritual counseling [] Bereavement support [] Provided bereavement packet [] Provided Bible/devotional materials [] Provided toy/stuffed animal, coloring book to patient or family member [] Provided Communion [] Anointing/[place] [] Salvation [x] Completed spiritual assessment [] Other: Impact on Illness or Injury [] Angry [] Fearful [] Anxious [] Often cries [] Exhaustion [] Unable to work [] Unable to attend rastafari [] Unable to walk/stand [] Unable to read [] Unable to drive [] Unable to eat/drink [] Unable to sleep [] Unable to be with family [] Patient intubated [] Other: Summary bending machine set up operator delivered blankets and footsies.. prayed for healing Time spent with patient 5 min
[2021-08-12 10:21] LABS: NT Pro B Type Natriuretic Pept 37 pg/mL (0-125); Procalcitonin 0.14 ng/mL (0-0.5); Thyroid Stimulating Hormone 0.81 uIU/mL (0.27-4.20)
[2021-08-12 10:32] LABS: Iron 33 ug/dL (37-145); Percent Saturation 22.6 % (20-50); Total Iron Binding Capacity 146 mcg/dl; Unsaturated Iron Binding 113 ug/dL (112-347)
[2021-08-12 11:18] LABS: D Dimer 1.91 ug/mIFEU (0-0.59)
[2021-08-12] MEDS: levoFLOXacin 500 mg Tablet PO (11:49)
[2021-08-12] MEDS: FUROsemide 10 mg/mL SDV 2mL 20 MG IVP (11:50)
[2021-08-12] MEDS: ipratropium-albuterol 3 mL Neb INHALATION ×2 (13:00→19:29)
--- NOTE | 2021-08-12 14:57 | P.PN_ITS ---
Subjective Subjective: Interval history: Admission sitting up in bed. States she is not able to lie down flat for last few days even before Covid. Denies any nausea vomiting, headache. States the night was uneventful. Currently on 40 L 65% saturating in high 80s. Denies any abdominal pain. Had 1 bowel movement overnight. Afebrile. States will not be able to do CTA because unable to lie down flat. Vitals/I&O/Wt Last Vital Signs Temp 98.4 F 08/12/21 08:00 Pulse 89 08/12/21 14:00 Resp 20 H 08/12/21 13:58 BP 138/84 08/12/21 12:00 Pulse Ox 92 08/12/21 13:58 08/11/21 08/12/21 08/12/21 22:59 06:59 14:59 Intake Total 150 / 150 Output Total 200 / 200 Balance -50 / -50 Weight last 48 hrs Weight 190.781 kg Weight 190.781 kg Weight 190.509 kg Physical Exam Narrative: EXAM NARRATIVE: General: No acute distress, AO x3, morbidly obese on heated high flow HEENT: PERRLA, pupils bilaterally equal and reactive Chest: Bilateral decreased airway entry, bilateral bronchial breath sounds with coarse crackles in bilateral lower zone CVS: S1-S2 regular, no murmurs, no tachycardia, no gallops, no rubs Abdomen: Soft, nontender, no organomegaly, bowel sounds present Neuro: No focal deficits, no facial deformity, AO x3, power 5/5 in all limbs Data : 08/12/21 03:57 08/12/21 03:57 Micro: Microbiology 08/11/21 17:30 Gram Stain - Final Sputum - Expectorated Sputum 08/12/21 10:50 Blood Culture - Preliminary Blood SPECIMEN COLLECTED 08/12/21 10:37 Blood Culture - Preliminary Blood SPECIMEN COLLECTED A&P Assessment and plan (1) Respiratory failure with hypoxia: Recent discharge 2 days ago after treatment for COVID-19 with remdesivir. Continue dexamethasone 6 mg IV daily. D-dimer elevated on admission. Check CTA. Unfortunately she is not able to able lie down flat so for now will start on Eliquis 5 mg twice daily. If D- dimer worsens will start on full dose anticoagulation. Patient already started on baricitinib yesterday. For now we will continue. We will monitor inflammatory markers including CRP, D-dimer, ferritin, proBNP. Procalcitonin negative yesterday. Check urine Legionella, urine bacterial antigen, MRSA PCR, blood cultures. Sputum culture results awaited. For now start patient on Levaquin 500 mg daily for next 5 days. We will try to keep patient as negative as possible. Check echocardiogram. IV Lasix 20 mg stat. Bailey catheterization. Fluid restriction up to 1500 cc, strict input output charting. Incentive spirometry, flutter valve. Vitamin C, zinc. Tessalon Perles, dextromethorphan. Nebulization with budesonide twice daily, DuoNebs every 4 hours. Status: Acute (2) 2019 novel coronavirus-infected pneumonia (NCIP): Return to the hospital after recent after 4 days of treatment, discharged yesterday. As above. Status: Acute (3) Elevated d-dimer: Secondary to COVID-19. Recheck level. Status: Acute (4) Transaminitis: Minimal, secondary to COVID-19. Status: Acute Additional A&P Information Morbid obesity Thyroid cyst Check iron panel, lipid panel, HbA1c. Full code. Full liquid diet. Eliquis will help with DVT prophylaxis. Famotidine for PUD prophylaxis. Attestations Medical Necessity Statement*: Required hospitalization for management of severe hypoxia secondary COVID-19 pneumonia Time Spent in Patient Care: Greater than 35 minutes (>than 50% of time spent in counselling and/or direct pt care on unit) . Coding Level of Care Code Acute Computer Technologist for [facility] Diagnoses Respiratory failure with hypoxia J96.91 2019 novel coronavirus-infected pneumonia (NCIP) U07.1; J12.82 Elevated d-dimer R79.89 Transaminitis R74.01
[2021-08-12 16:52] LABS: Specific Gravity, Urine 1.015 (1.005-1.030); Urine Appearance Clear (CLEAR); Urine Color Yellow (Yellow); pH Urine 5 (5-7)
[2021-08-12 16:53] LABS: Add Urine Microscopic? YES; Bilirubin Urine Neg (Negative); Blood Urine Trace (Negative); Glucose Urine UA Norm (Normal); Ketones Urine 1+ (Negative); Leukocyte Esterase Urine Negative (Negative); Nitrate Urine Negative (Negative); Protein Urine Neg (Negative); Urobilinogen Urine Norm (Negative)
[2021-08-12 16:54] LABS: WBC Urine 0-4 /hpf (0-5)
[2021-08-12 16:55] LABS: Add Urine Culture? No; Bacteria Urine TRACE /hpf; Mucus Urine 1+ /hpf; RBC Urine 0-4 /hpf (0-2); Squamous Epithelial Cell Urine 0-4 /hpf (0-5)
[2021-08-12 17:29] LABS: Influenza A by IFA Negative (Negative); Influenza B by IFA Negative (Negative)
[2021-08-12] MEDS: ferrous gluconate 324 mg Tablet PO (17:51)
[2021-08-12] MEDS: ascorbic acid 500 mg Tablet PO (17:51)
[2021-08-12] MEDS: dexamethasone 10 mg/mL INJ 6 MG IVP (17:51)
[2021-08-12] MEDS: famotidine 20 mg Tablet PO (17:51)
[2021-08-12] MEDS: budesonide 0.5 mg/2 mL Neb INHALATION (19:28)
[2021-08-12] MEDS: acetaminophen 325 mg Tablet 650 MG PO (19:35)
[2021-08-12] MEDS: apixaban 5 mg Tablet PO (21:05)
[2021-08-13] VITALS (16 sets, daily range): BP systolic 112–187; BP diastolic 59–102; PULSE 79–106; RESP 18–32; TEMP 36.2–36.7; O2SAT 87–95
[2021-08-13] MEDS: ipratropium-albuterol 3 mL Neb INHALATION ×7 (00:24→23:55)
[2021-08-13] MEDS: ondansetron 2 mg/ML SDV 2 mL 4 MG IVP (03:52)
[2021-08-13 04:32] LABS: ABG PCO2 41.6 mmHg (35-45); ABG PH Result 7.46 (7.35-7.45); Alveolar-Arterial Oxygen Gradi 46.6 mmHg (5-10); Arterial Blood Gas Hematocrit 41.7 % (37-47); Base Excess ABG 5.3 mmol/L (-2.0-2.0); Blood Gas Allen Test Pos; Blood Gas Sample Site Radial, right; Blood Gas Sample Type Arterial; Carboxyhemoglobin 0.5 %THgb (0.4-20.1); HCO3 ABG 29.7 mmol/L (22-26); HGB O2 Sat 89.5 % (95-100); Ionized Calcium Level - ABG 1.1 mmol/L (1.1-1.4); Methemoglobin 0.5 % (0.4-1.5); Oxygen Device HAG; Oxygen Saturation ABG 90.3; PO2 ABG 53.7 mmHg (80.0-100.0); Potassium Level - ABG 3.4 mmol/L (3.5-5.0); Total Hemoglobin 13.6 g/dL (12-16)
[2021-08-13] MEDS: montelukast sodium 10 mg Tablet PO (05:47)
[2021-08-13] MEDS: cetirizine 10 mg Tablet PO (05:47)
[2021-08-13] MEDS: lisinopril 10 mg Tablet PO (05:47)
[2021-08-13] MEDS: levoFLOXacin 500 mg Tablet PO (05:47)
[2021-08-13 05:57] LABS: Basophils % 0.3 %; Hematocrit 39.3 % (37.0-47.0); Hemoglobin 13.3 g/dL (11.5-15.3); Lymphocytes # 1.5 10^3/uL (0.8-4.8); Mean Corpuscular HGB Conc 33.8 g/dL (30.0-36.0); Mean Corpuscular Volume 85.8 fl (81-99); Mean Platelet Volume 11.5 fL (7.4-10.4); Monocytes # 0.7 10^3/uL (0.2-0.9); Monocytes % 8.9 %; Neutrophils # 4.67 10^3/uL (1.8-7.7); Neutrophils % 64.1 %; Nucleated Red Blood Cells % 0 %; Platelet Count 290 10^3/cmm (130-400); Red Blood Count 4.58 10^6/uL (4.1-5.3); Red Cell Distribution Width 13.7 % (12.1-15.1); White Blood Count 7.3 10^3/uL (4.0-10.0)
[2021-08-13 06:22] LABS: D Dimer 1.22 ug/mIFEU (0-0.59)
[2021-08-13 06:31] LABS: Alanine Aminotransferase 21 U/L (0-33); Alkaline Phosphatase 63 IU/L (35-105); Anion Gap 16.5 (5-19); Aspartate Amino Transferase 30 U/L (0-32); Blood Urea Nitrogen 17 mg/dL (6-20); Calcium 8.1 mg/dL (8.5-10.5); Carbon Dioxide 26 mmol/L (22-29); Chloride 99 mmol/L (98-107); Globulin 3.2 g/dL (1.3-4.6); Glomerular Filtration Rate 87.9 mL/min (90-130); Glucose 218 mg/dL (65-115); Osmolality Calculated 294 mOsm/kg (285-295); Potassium 3.5 mmol/L (3.5-5.1); Sodium 138 mmol/L (136-145); Total Bilirubin 0.5 mg/dL (0.15-1.2); Total Protein 6.2 g/dL (6.6-8.7)
[2021-08-13 06:42] LABS: C Reactive Protein 70.8 mg/L (0.0-4.9); Chol HDL Ratio 2.48 mg/dL (0.0-4.40); Cholesterol 62 mg/dL (0-200); Ferritin 832 ng/mL (15-150); HDL Cholesterol 25 mg/dL (60-100); LDL Cholesterol Calculated 23 mg/dL (50-129); NT Pro B Type Natriuretic Pept 111 pg/mL (0-125); Triglycerides 70 mg/dL (0-150); VLDL Cholestrol Calculation 14 mg/dL (0-30)
[2021-08-13 07:04] LABS: Estmated Average Glucose 114; Hemoglobin A1C 5.6 % (4.0-6.0)
--- NOTE | 2021-08-13 07:28 | PC.NURSE ---
Frequent safety and comfort rounds continue. Orders and/or nursing care completed as indicated. Patient monitored for response to intervention and treatment for pain. Education provided includes repostioning to help pain. Patient and/or territory sales representative verbalizes understanding Will continue to monitor.
[2021-08-13 07:36] LABS: Slide Review Slide Review Perform
[2021-08-13] MEDS: budesonide 0.5 mg/2 mL Neb INHALATION ×2 (08:13→20:03)
--- NOTE | 2021-08-13 09:00 | PC.NURSE ---
Pt lying in bed resting with eyes open talking to staff. Resp even and non-labored no distress noted. Pt had no c/o pain or discomfort at the present time. No needs voiced. Call light in reach.
[2021-08-13] MEDS: benzonatate 100 mg Capsule 200 MG PO ×3 (09:14→21:19)
[2021-08-13] MEDS: apixaban 5 mg Tablet PO ×2 (09:15→21:19)
[2021-08-13] MEDS: ascorbic acid 500 mg Tablet PO ×2 (09:15→17:28)
[2021-08-13] MEDS: ferrous gluconate 324 mg Tablet PO ×2 (09:15→17:28)
[2021-08-13] MEDS: famotidine 20 mg Tablet PO ×2 (09:15→17:28)
[2021-08-13] MEDS: zinc gluconate 50 mg Tablet PO (09:15)
[2021-08-13] MEDS: fluticasone nasal spray 16gm Btl 2 SPRAY INTRANASAL (09:16)
[2021-08-13] MEDS: metoprolol tartrate 25 mg Tablet PO ×2 (11:50→21:19)
[2021-08-13] MEDS: acetaminophen 325 mg Tablet 650 MG PO (11:51)
[2021-08-13] MEDS: FUROsemide 10 mg/mL SDV 4mL 40 MG IVP (11:51)
--- NOTE | 2021-08-13 16:50 | PM.PN ---
Subjective Subjective: Interval history: Patient has remained hemodynamically stable and afebrile overnight. Currently on 45 L 100% FiO2 saturating in low 90s. We discussed in detail today for importance of I-S and Acapella. Patient has been reluctant to use both for now. Today she has been using it regularly every hourly at regular persistent reminding by the nursing staff. She denies and declines using CPAP or BiPAP overnight. Complaining of feeling weak. Denies any nausea vomiting, headache. Vitals/I&O/Wt Last Vital Signs Temp 97.9 F 08/13/21 16:00 Pulse 92 08/13/21 16:00 Resp 30 H 08/13/21 16:00 BP 112/75 08/13/21 16:00 Pulse Ox 90 08/13/21 16:00 08/13/21 08/13/21 08/13/21 06:59 14:59 22:59 Intake Total 300 / 300 240 / 240 Output Total 300 / 300 Balance 0 / 0 240 / 240 Weight last 48 hrs Weight 192.142 kg Weight 190.781 kg Weight 190.781 kg Physical Exam Narrative: EXAM NARRATIVE: General: No acute distress, AO x3, morbidly obese on heated high flow HEENT: PERRLA, pupils bilaterally equal and reactive Chest: Bilateral decreased airway entry, bilateral bronchial breath sounds with coarse crackles in bilateral lower zone CVS: S1-S2 regular, no murmurs, no tachycardia, no gallops, no rubs Abdomen: Soft, nontender, no organomegaly, bowel sounds present Neuro: No focal deficits, no facial deformity, AO x3, power 5/5 in all limbs Urinary Catheter Management^: Bailey: Cath Placed During This Visit: yes Reason for Continuing Indwelling Catheter: Acute Urinary Retention or Obstruction Urinary Catheter Date of Insertion: 08/12/21 Urinary Catheter Time of Insertion: 16:00 Data : 08/13/21 04:17 08/13/21 04:17 Micro: Microbiology 08/12/21 15:25 MRSA Culture - Final Nose 08/11/21 17:30 Gram Stain - Final Sputum - Expectorated Sputum Sputum Culture - Preliminary 08/12/21 10:50 Blood Culture - Preliminary Blood NEGATIVE TO DATE 08/12/21 10:37 Blood Culture - Preliminary Blood NEGATIVE TO DATE 08/12/21 16:10 Bacterial Antigens - Final Urine Kidney 08/12/21 16:10 Legionella Urinary Antigen - Final Urine,Clean Catch A&P Assessment and plan (1) Respiratory failure with hypoxia: Recent discharge 2 days ago after treatment for COVID-19 with remdesivir. Continue dexamethasone 6 mg IV daily. D-dimer elevated on admission. Check CTA. Unfortunately she is not able to able lie down flat so for now will start on Eliquis 5 mg twice daily. If D-dimer worsens will start on full dose anticoagulation. Patient already started on baricitinib. For now we will continue. We will monitor inflammatory markers including CRP, D-dimer, ferritin, proBNP every 48 hourly. For now trending down. Profile, urine Legionella, bacterial antigen, MRSA swab negative. Blood cultures so far negative. Sputum culture so far preliminary negative. For now low suspicion of bacterial superimposed infection. Continue Levaquin to finish 5-day course. We will try to keep patient as negative as possible. Echocardiogram pending. Repeat IV Lasix 40 mg stat. Fluid restriction up to 1500 cc, strict input output charting. Incentive spirometry, flutter valve. Vitamin C, zinc. Tessalon Perles, dextromethorphan. Nebulization with budesonide twice daily, DuoNebs every 4 hours. Status: Acute (2) 2019 novel coronavirus-infected pneumonia (NCIP): Return to the hospital after recent after 4 days of treatment, discharged yesterday. As above. Status: Acute (3) Elevated d-dimer: Secondary to COVID-19. Recheck level. Status: Acute (4) Transaminitis: Resolved. Minimal, secondary to COVID-19. Status: Acute (5) Morbid obesity: Status: Acute Additional A&P Information Morbid obesity Thyroid cyst Full code. Full liquid diet. Eliquis will help with DVT prophylaxis. Famotidine for PUD prophylaxis. Out of bed to chair. Attestations Medical Necessity Statement*: Requires further hospitalization for management of severe hypoxia secondary to COVID-19 pneumonia, morbid obesity, possibly undiagnosed obstructive sleep apnea Time Spent in Patient Care: Greater than 35 minutes (>than 50% of time spent in counselling and/or direct pt care on unit). Coding Level of Care Code Acute Nurse Anesthetist for [facility] Diagnoses Respiratory failure with hypoxia J96.91 2019 novel coronavirus-infected pneumonia (NCIP) U07.1; J12.82 Elevated d-dimer R79.89 Transaminitis R74.01 Morbid obesity E66.01
[2021-08-13] MEDS: dexamethasone 10 mg/mL INJ 6 MG IVP (17:29)
[2021-08-13] MEDS: trazodone 50 mg Tablet PO (21:19)
[2021-08-14] VITALS (19 sets, daily range): BP systolic 104–123; BP diastolic 57–71; PULSE 76–103; RESP 16–32; TEMP 36.6–37; O2SAT 88–94
[2021-08-14 02:54] LABS: Basophils % 0.2 %; Hematocrit 37.2 % (37.0-47.0); Hemoglobin 12.3 g/dL (11.5-15.3); Lymphocytes # 1.1 10^3/uL (0.8-4.8); Lymphocytes % 9.7 %; Mean Corpuscular HGB Conc 33.1 g/dL (30.0-36.0); Mean Corpuscular Hemoglobin 28.5 pg (28.0-34.0); Mean Corpuscular Volume 86.3 fl (81-99); Mean Platelet Volume 10.7 fL (7.4-10.4); Monocytes # 0.8 10^3/uL (0.2-0.9); Monocytes % 6.9 %; Neutrophils # 8.84 10^3/uL (1.8-7.7); Neutrophils % 78.2 %; Nucleated Red Blood Cells % 0 %; Platelet Count 320 10^3/cmm (130-400); Red Blood Count 4.31 10^6/uL (4.1-5.3); Red Cell Distribution Width 13.9 % (12.1-15.1); White Blood Count 11.3 10^3/uL (4.0-10.0)
[2021-08-14 03:17] LABS: Alanine Aminotransferase 17 U/L (0-33); Albumin Level 2.9 g/dL (3.5-5.2); Alkaline Phosphatase 55 IU/L (35-105); Anion Gap 19.6 (5-19); Aspartate Amino Transferase 26 U/L (0-32); Blood Urea Nitrogen 16 mg/dL (6-20); Calcium 7.9 mg/dL (8.5-10.5); Carbon Dioxide 23 mmol/L (22-29); Chloride 96 mmol/L (98-107); Globulin 3.1 g/dL (1.3-4.6); Glomerular Filtration Rate 75.3 mL/min (90-130); Glucose 225 mg/dL (65-115); Osmolality Calculated 288 mOsm/kg (285-295); Potassium 3.6 mmol/L (3.5-5.1); Sodium 135 mmol/L (136-145); Total Bilirubin 0.5 mg/dL (0.15-1.2)
[2021-08-14 03:53] LABS: Ferritin 848 ng/mL (15-150); NT Pro B Type Natriuretic Pept 64 pg/mL (0-125)
[2021-08-14] MEDS: cetirizine 10 mg Tablet PO (05:17)
[2021-08-14] MEDS: levoFLOXacin 500 mg Tablet PO (05:17)
[2021-08-14] MEDS: montelukast sodium 10 mg Tablet PO (05:17)
[2021-08-14] MEDS: lisinopril 10 mg Tablet PO (05:17)
--- NOTE | 2021-08-14 05:31 | PC.NURSE ---
Patient has been educated multiple times on hourly use of incentive spirometer and acapella. Patient states, I've been doing it every hour, just like they told me.
--- NOTE | 2021-08-14 06:00 | XR_ITS ---
WS: [id number] Exam: XR chest 1V portable [id number] Date/Time of Exam: 08/14/2021 6:10 AM Reason For Exam: covid Comparison 08/11/2021. Improved bilateral pulmonary infiltrates are noted. Residual infiltrates are seen in the bilateral la teral lung zones. Cardiomediastinal silhouette is unremarkable for portable technique. No pneumothora x or pleural effusion. Bony structures are intact. XR/XR chest 1V portable [id number] IMPRESSION: 1. Bilateral pulmonary infiltrates showing some improvement since the last stud y.
[2021-08-14 07:23] LABS: Glucose Point of Care 211 mg/dL (70-110)
[2021-08-14] MEDS: ipratropium-albuterol 3 mL Neb INHALATION ×4 (08:01→20:47)
[2021-08-14] MEDS: budesonide 0.5 mg/2 mL Neb INHALATION ×2 (08:01→20:47)
[2021-08-14] MEDS: metoprolol tartrate 25 mg Tablet PO ×2 (08:17→21:10)
[2021-08-14] MEDS: fluticasone nasal spray 16gm Btl 2 SPRAY INTRANASAL (08:18)
[2021-08-14] MEDS: benzonatate 100 mg Capsule 200 MG PO ×3 (08:18→21:09)
[2021-08-14] MEDS: famotidine 20 mg Tablet PO ×2 (08:18→16:23)
[2021-08-14] MEDS: zinc gluconate 50 mg Tablet PO (08:18)
[2021-08-14] MEDS: ferrous gluconate 324 mg Tablet PO ×2 (08:18→16:23)
[2021-08-14] MEDS: apixaban 5 mg Tablet PO ×2 (08:18→21:10)
[2021-08-14] MEDS: ascorbic acid 500 mg Tablet PO ×2 (08:18→16:23)
[2021-08-14] MEDS: nystatin 100,000 unit/mL UDC 5 mL 100000 UNIT PO ×3 (13:52→21:28)
--- NOTE | 2021-08-14 15:02 | P.PN_ITS ---
Subjective Subjective: Interval history: No acute events overnight. Patient states she is feeling a lot better. Sitting up in chair today. Working a lot better with I-S and Acapella. She has been working with both every hourly for now. Denies any nausea vomiting, headache. Oxygen saturation more than 90% on 40 L 75% today. Plan to trend down on oxygen supplementation during the day. Vitals/I&O/Wt Last Vital Signs Temp 98.6 F 08/14/21 09:27 Pulse 89 08/14/21 12:38 Resp 18 08/14/21 12:36 BP 123/60 08/14/21 09:27 Pulse Ox 90 08/14/21 12:36 08/14/21 08/14/21 08/14/21 06:59 14:59 22:59 Intake Total 100 / 580 315 / 315 Output Total 300 / 1050 Balance -200 / -470 315 / 315 Weight last 48 hrs Weight 190.463 kg Weight 192.142 kg Physical Exam Narrative: EXAM NARRATIVE: General: No acute distress, AO x3, morbidly obese on heated high flow HEENT: PERRLA, pupils bilaterally equal and reactive Chest: Bilateral decreased airway entry, bilateral bronchial breath sounds with coarse crackles in bilateral lower zone CVS: S1-S2 regular, no murmurs, no tachycardia, no gallops, no rubs Abdomen: Soft, nontender, no organomegaly, bowel sounds present Neuro: No focal deficits, no facial deformity, AO x3, power 5/5 in all limbs Urinary Catheter Management^: Bailey: Cath Placed During This Visit: yes Reason for Continuing Indwelling Catheter: Accurate Measurement of Urinary Output in Critically Ill Patients Urinary Catheter Date of Insertion: 08/12/21 Urinary Catheter Time of Insertion: 16:00 Data : 08/14/21 02:38 08/14/21 02:38 Micro: Microbiology 08/11/21 17:30 Gram Stain - Final Sputum - Expectorated Sputum Sputum Culture - Final 08/12/21 15:25 MRSA Culture - Final Nose 08/12/21 10:50 Blood Culture - Preliminary Blood NEGATIVE TO DATE 08/12/21 10:37 Blood Culture - Preliminary Blood NEGATIVE TO DATE A&P Assessment and plan (1) Respiratory failure with hypoxia: Recent discharge 2 days ago after treatment for COVID-19 with remdesivir. Continue dexamethasone 6 mg IV daily. D-dimer elevated on admission. Unfortunately she is not able to able lie down flat so CTA could not be done. For now continue with Eliquis 5 mg twice daily. If D-dimer worsens will start on full dose anticoagulation. Patient already started on baricitinib. For now we will continue. We will monitor inflammatory markers including CRP, D-dimer, ferritin, proBNP every 48 hourly. For now trending down. Procalcitonin negative, urine Legionella, bacterial antigen, MRSA swab negative. Blood cultures so far negative. Sputum culture so far preliminary negative. For now low suspicion of bacterial superimposed infection. Continue Levaquin to finish 5-day course. We will try to keep patient as negative as possible. Echocardiogram pending. Repeat IV Lasix 40 mg stat. Fluid restriction up to 1500 cc, strict input output charting. Incentive spirometry, flutter valve. Vitamin C, zinc. Tessalon Perles, dextromethorphan. Nebulization with budesonide twice daily, DuoNebs every 4 hours. Status: Acute (2) 2019 novel coronavirus-infected pneumonia (NCIP): Return to the hospital after recent after 4 days of treatment 1 day after discharge. Status: Acute (3) Elevated d-dimer: Secondary to COVID-19. Recheck level. Status: Acute (4) Transaminitis: Resolved. Minimal, secondary to COVID-19. Status: Acute (5) Morbid obesity: Status: Acute (6) Hyperglycemia: Status: Acute Additional A&P Information Morbid obesity Thyroid cyst Hyperglycemia: No history of type 2 diabetes mellitus. HbA1c 4.9. Most likely secondary to steroids. Start on insulin sliding scale at low-dose protocol. Nystatin swish and swallow. Full code. Mechanical soft diet. Glucerna supplementation. Eliquis will help with DVT prophylaxis. Famotidine for PUD prophylaxis. Out of bed to chair. Attestations Medical Necessity Statement*: Requires further hospitalization for management of severe hypoxia secondary COVID-19 pneumonia Time Spent in Patient Care: Greater than 35 minutes (>than 50% of time spent in counselling and/or direct pt care on unit) . Coding Level of Care Code Acute [employer]estock [employer] Inspector for [facility] Fwd Diagnoses Respiratory failure with hypoxia J96.91 2019 novel coronavirus-infected pneumonia (NCIP) U07.1; J12.82 Elevated d-dimer R79.89 Transaminitis R74.01 Morbid obesity E66.01 Hyperglycemia R73.9
[2021-08-14 17:03] LABS: Glucose Point of Care 226 mg/dL (70-110)
[2021-08-14] MEDS: dexamethasone 10 mg/mL INJ 6 MG IVP (17:13)
[2021-08-14] MEDS: FUROsemide 10 mg/mL SDV 4mL 40 MG IVP (17:14)
[2021-08-14] MEDS: insulin lispro 100 unit/1 mL SUBCUT ×2 (17:15→21:08)
[2021-08-14] MEDS: trazodone 50 mg Tablet PO (21:11)
[2021-08-14] MEDS: nystatin powder 15 gm Btl 1 APPLIC TOPICAL (21:23)
[2021-08-15] VITALS (19 sets, daily range): BP systolic 99–115; BP diastolic 53–68; PULSE 80–99; RESP 16–34; TEMP 36.6–36.9; O2SAT 84–94
[2021-08-15] MEDS: ipratropium-albuterol 3 mL Neb INHALATION ×6 (00:08→23:53)
--- NOTE | 2021-08-15 00:19 | PC.RESP ---
Pt desat to 86% on charted settings. RT increased HHF settings to 40L and 70% att. Current SAT 90%, will continue to monitor
[2021-08-15] MEDS: lisinopril 10 mg Tablet PO (05:15)
[2021-08-15] MEDS: cetirizine 10 mg Tablet PO (05:16)
[2021-08-15] MEDS: levoFLOXacin 500 mg Tablet PO (05:16)
[2021-08-15] MEDS: montelukast sodium 10 mg Tablet PO (05:16)
[2021-08-15 05:31] LABS: Basophils % 0.4 %; Hematocrit 36.9 % (37.0-47.0); Hemoglobin 12.2 g/dL (11.5-15.3); Lymphocytes # 0.9 10^3/uL (0.8-4.8); Lymphocytes % 11.1 %; Mean Corpuscular HGB Conc 33.1 g/dL (30.0-36.0); Mean Corpuscular Hemoglobin 28.5 pg (28.0-34.0); Mean Corpuscular Volume 86.2 fl (81-99); Mean Platelet Volume 10.6 fL (7.4-10.4); Monocytes # 0.8 10^3/uL (0.2-0.9); Monocytes % 9.3 %; Neutrophils % 71.9 %; Nucleated Red Blood Cells % 0 %; Platelet Count 326 10^3/cmm (130-400); Red Blood Count 4.28 10^6/uL (4.1-5.3); Red Cell Distribution Width 14.1 % (12.1-15.1); White Blood Count 8.4 10^3/uL (4.0-10.0)
[2021-08-15 05:48] LABS: D Dimer 0.99 ug/mIFEU (0-0.59)
[2021-08-15 05:59] LABS: Alanine Aminotransferase 18 U/L (0-33); Alkaline Phosphatase 54 IU/L (35-105); Blood Urea Nitrogen 16 mg/dL (6-20); Carbon Dioxide 29 mmol/L (22-29); Chloride 99 mmol/L (98-107); Globulin 2.9 g/dL (1.3-4.6); Glomerular Filtration Rate 75.3 mL/min (90-130); Glucose 242 mg/dL (65-115); Osmolality Calculated 293 mOsm/kg (285-295); Sodium 137 mmol/L (136-145); Total Bilirubin 0.5 mg/dL (0.15-1.2); Total Protein 5.9 g/dL (6.6-8.7)
[2021-08-15 06:04] LABS: Anion Gap 12.9 (5-19); Aspartate Amino Transferase 25 U/L (0-32); Potassium 3.9 mmol/L (3.5-5.1)
[2021-08-15 06:05] LABS: C Reactive Protein 18.2 mg/L (0.0-4.9); Ferritin 795 ng/mL (15-150); NT Pro B Type Natriuretic Pept 49 pg/mL (0-125)
[2021-08-15 06:31] LABS: Glucose Point of Care 248 mg/dL (70-110)
[2021-08-15 06:41] LABS: Slide Review Slide Review Perform
[2021-08-15] MEDS: budesonide 0.5 mg/2 mL Neb INHALATION ×2 (08:25→21:13)
[2021-08-15] MEDS: nystatin 100,000 unit/mL UDC 5 mL 100000 UNIT PO ×4 (08:29→20:34)
[2021-08-15] MEDS: ascorbic acid 500 mg Tablet PO ×2 (08:29→17:18)
[2021-08-15] MEDS: insulin lispro 100 unit/1 mL SUBCUT ×3 (08:29→17:18)
[2021-08-15] MEDS: famotidine 20 mg Tablet PO ×2 (08:30→17:18)
[2021-08-15] MEDS: apixaban 5 mg Tablet PO ×2 (08:30→20:35)
[2021-08-15] MEDS: metoprolol tartrate 25 mg Tablet PO ×2 (08:30→20:36)
[2021-08-15] MEDS: benzonatate 100 mg Capsule 200 MG PO ×3 (08:30→20:36)
[2021-08-15] MEDS: zinc gluconate 50 mg Tablet PO (08:30)
[2021-08-15] MEDS: ferrous gluconate 324 mg Tablet PO ×2 (08:30→17:18)
[2021-08-15] MEDS: fluticasone nasal spray 16gm Btl 2 SPRAY INTRANASAL (08:30)
[2021-08-15 11:43] LABS: Glucose Point of Care 249 mg/dL (70-110)
[2021-08-15] MEDS: FUROsemide 10 mg/mL SDV 4mL 40 MG IVP (12:45)
--- NOTE | 2021-08-15 13:07 | P.PN_ITS ---
Subjective Subjective: Interval history: No acute events overnight. Patient has remained hemodynamically stable afebrile. Continues to remain on heated high flow but monitor for oxygen supplementation today. Currently on 30 L 60% saturating 92%. Patient has been sitting up in chair again today. Working with I-S and [employer]. Continues to do better. Vitals/I&O/Wt Last Vital Signs Temp 98.5 F 08/15/21 04:00 Pulse 88 08/15/21 11:30 Resp 18 08/15/21 11:29 BP 113/60 08/15/21 09:54 Pulse Ox 87 L 08/15/21 11:29 08/14/21 08/15/21 08/15/21 22:59 06:59 14:59 Intake Total 118 / 669 118 / 118 Output Total 800 / 1050 200 / 1250 Balance -682 / -381 -200 / -581 118 / 118 Weight last 48 hrs Weight 192.913 kg Weight 190.463 kg Physical Exam Narrative: EXAM NARRATIVE: General: No acute distress, AO x3, morbidly obese on heated high flow, getting extremely distressed with respiration on minimal movement from bed to chair with use of accessory muscle HEENT: PERRLA, pupils bilaterally equal and reactive Chest: Bilateral decreased airway entry, bilateral bronchial breath sounds with coarse crackles in bilateral lower zone CVS: S1-S2 regular, no murmurs, no tachycardia, no gallops, no rubs Abdomen: Soft, nontender, no organomegaly, bowel sounds present Neuro: No focal deficits, no facial deformity, AO x3, power 5/5 in all limbs Urinary Catheter Management^: Bailey: Cath Placed During This Visit: yes Reason for Continuing Indwelling Catheter: Accurate Measurement of Urinary Output in Critically Ill Patients Urinary Catheter Date of Insertion: 08/12/21 Urinary Catheter Time of Insertion: 16:00 Data : 08/15/21 04:20 08/15/21 04:20 Micro: Microbiology 08/11/21 17:30 Gram Stain - Final Sputum - Expectorated Sputum Sputum Culture - Final A&P Assessment and plan (1) Respiratory failure with hypoxia: Recent discharge 2 days ago after treatment for COVID-19 with remdesivir. Continue dexamethasone 6 mg IV daily. D-dimer elevated on admission. Unfortunately she is not able to able lie down flat so CTA could not be done. For now continue with Eliquis 5 mg twice daily. If D-dimer worsens will start on full dose anticoagulation. Patient already started on baricitinib. For now we will continue. We will monitor inflammatory markers including CRP, D-dimer, ferritin, proBNP every 48 hourly. For now trending down. Procalcitonin negative, urine Legionella, bacterial antigen, MRSA swab negative. Blood cultures so far negative. Sputum culture so far preliminary negative. For now low suspicion of bacterial superimposed infection. Continue Levaquin to finish 5-day course. We will try to keep patient as negative as possible. Echocardiogram shows an EF of 67% without regional wall motion abnormality, no pericardial effusion. Repeat IV Lasix 40 mg stat. Fluid restriction up to 1500 cc, strict input output charting. Incentive spirometry, flutter valve. Vitamin C, zinc. Tessalon Perles, dextromethorphan. Nebulization with budesonide twice daily, DuoNebs every 4 hours. Status: Acute (2) 2019 novel coronavirus-infected pneumonia (NCIP): Return to the hospital after recent after 4 days of treatment 1 day after discharge. Status: Acute (3) Elevated d-dimer: Secondary to COVID-19. Recheck level. Status: Acute (4) Transaminitis: Resolved. Minimal, secondary to COVID-19. Status: Acute (5) Morbid obesity: Status: Acute (6) Hyperglycemia: Status: Acute Additional A&P Information Morbid obesity Thyroid cyst Hyperglycemia: No history of type 2 diabetes mellitus. HbA1c 4.9. Most likely secondary to steroids. Start on insulin sliding scale at low-dose protocol. Nystatin swish and swallow. Full code. Mechanical soft diet. Glucerna supplementation. Eliquis will help with DVT prophylaxis. Famotidine for PUD prophylaxis. Plan for the day: Out of bed to chair. Aggressive pulmonary toilet with I-S and Acapella. Continue dexamethasone. Continue Levaquin. Repeat IV Lasix. Strict input output charting. Oxygen supplementation to be weaned down keeping saturation over 88%. Insulin sliding scale to high-dose protocol for better blood sugar control Attestations Medical Necessity Statement*: Requires further hospitalization for management of hypoxic respiratory failure secondary to COVID-19 pneumonia as patient is heated high flow dependent Time Spent in Patient Care: Greater than 35 minutes (>than 50% of time spent in counselling and/or direct pt care on unit) . Coding Level of Care Code Acute Dispute Coordinator for [facility] Fwd Diagnoses Respiratory failure with hypoxia J96.91 2019 novel coronavirus-infected pneumonia (NCIP) U07.1; J12.82 Elevated d-dimer R79.89 Transaminitis R74.01 Morbid obesity E66.01 Hyperglycemia R73.9
[2021-08-15 15:52] LABS: Glucose Point of Care 191 mg/dL (70-110)
[2021-08-15 20:25] LABS: Glucose Point of Care 133 mg/dL (70-110)
[2021-08-15] MEDS: trazodone 50 mg Tablet PO (20:35)
--- NOTE | 2021-08-15 20:56 | PC.NURSE ---
Patients son, Zachary Beltre, called to check on patient. Verbal permission from patient to give family member update on her status.
[2021-08-16] VITALS (15 sets, daily range): BP systolic 87–94; BP diastolic 53–71; PULSE 88–113; RESP 22–108; TEMP 37.2–38.1; O2SAT 87–92; BMI 74.5
[2021-08-16] MEDS: ipratropium-albuterol 3 mL Neb INHALATION ×6 (03:59→23:11)
[2021-08-16] MEDS: montelukast sodium 10 mg Tablet PO (05:16)
[2021-08-16] MEDS: lisinopril 10 mg Tablet PO (05:16)
[2021-08-16] MEDS: cetirizine 10 mg Tablet PO (05:16)
[2021-08-16] MEDS: levoFLOXacin 500 mg Tablet PO (05:16)
--- NOTE | 2021-08-16 06:00 | XR_ITS ---
WS: [id number] Exam: XR chest 1V portable [id number] Date/Time of Exam: 08/16/2021 6:11 AM Reason For Exam: covid Comparison 08/14/2021. Patchy bilateral pulmonary infiltrates show little change since the prior study. The lungs are fully inflated. No pleural effusions. Cardiomediastinal structures are unremarkable. Bony elements are inta ct. XR/XR chest 1V portable [id number] IMPRESSION: 1. Patchy bilateral pulmonary infiltrates showing little change since the last exam.
[2021-08-16 07:18] LABS: Glucose Point of Care 101 mg/dL (70-110)
[2021-08-16] MEDS: zinc gluconate 50 mg Tablet PO (08:18)
[2021-08-16] MEDS: ascorbic acid 500 mg Tablet PO ×2 (08:18→17:22)
[2021-08-16] MEDS: nystatin 100,000 unit/mL UDC 5 mL 100000 UNIT PO ×4 (08:18→21:17)
[2021-08-16] MEDS: famotidine 20 mg Tablet PO ×2 (08:18→17:22)
[2021-08-16] MEDS: ferrous gluconate 324 mg Tablet PO ×2 (08:18→17:22)
[2021-08-16] MEDS: benzonatate 100 mg Capsule 200 MG PO ×3 (08:18→21:16)
[2021-08-16] MEDS: apixaban 5 mg Tablet PO ×2 (08:18→21:17)
[2021-08-16] MEDS: metoprolol tartrate 25 mg Tablet PO ×2 (08:18→21:16)
[2021-08-16] MEDS: budesonide 0.5 mg/2 mL Neb INHALATION ×2 (09:52→20:03)
[2021-08-16 12:13] LABS: Glucose Point of Care 90 mg/dL (70-110)
--- NOTE | 2021-08-16 14:25 | PM.PN ---
Subjective Subjective: Interval history: No acute events overnight. Has remained hemodynamically stable, febrile. Today morning sitting up in bed. Wants to go to the chair. Working well with I-S and Acapella. Saturating in high 80s on 30 L 60%. Vitals/I&O/Wt Last Vital Signs Temp 97.8 F 08/15/21 15:59 Pulse 89 08/16/21 12:50 Resp 22 H 08/16/21 12:50 BP 99/53 08/15/21 18:34 Pulse Ox 89 L 08/16/21 12:50 08/15/21 08/16/21 08/16/21 22:59 06:59 14:59 Intake Total 236 / 464 360 / 360 Output Total 800 / 800 140 / 940 Balance -564 / -336 -140 / -476 360 / 360 Weight last 48 hrs Weight 190.962 kg Weight 192.913 kg Physical Exam Narrative: EXAM NARRATIVE: General: No acute distress, AO x3, morbidly obese on heated high flow, getting extremely distressed with respiration on minimal movement from bed to chair with use of accessory muscle HEENT: PERRLA, pupils bilaterally equal and reactive Chest: Bilateral decreased airway entry, bilateral bronchial breath sounds with coarse crackles in bilateral lower zone CVS: S1-S2 regular, no murmurs, no tachycardia, no gallops, no rubs Abdomen: Soft, nontender, no organomegaly, bowel sounds present Neuro: No focal deficits, no facial deformity, AO x3, power 5/5 in all limbs Urinary Catheter Management^: Bailey: Cath Placed During This Visit: yes Reason for Continuing Indwelling Catheter: Acute Urinary Retention or Obstruction Urinary Catheter Date of Insertion: 08/12/21 Urinary Catheter Time of Insertion: 16:00 Data : 08/15/21 04:20 08/15/21 04:20 A&P Assessment and plan (1) Respiratory failure with hypoxia: Recent discharge 2 days ago after treatment for COVID-19 with remdesivir. Continue dexamethasone 6 mg IV daily. D-dimer elevated on admission. Unfortunately she is not able to able lie down flat so CTA could not be done. For now continue with Eliquis 5 mg twice daily. If D-dimer worsens will start on full dose anticoagulation. Patient already started on baricitinib. For now we will continue. We will monitor inflammatory markers including CRP, D-dimer, ferritin, proBNP every 48 hourly. For now trending down. Procalcitonin negative, urine Legionella, bacterial antigen, MRSA swab negative. Blood cultures so far negative. Sputum culture so far preliminary negative. For now low suspicion of bacterial superimposed infection. Continue Levaquin to finish 5-day course. We will try to keep patient as negative as possible. Echocardiogram shows an EF of 67% without regional wall motion abnormality, no pericardial effusion. Repeat IV Lasix 40 mg stat. Fluid restriction up to 1500 cc, strict input output charting. Incentive spirometry, flutter valve. Vitamin C, zinc. Tessalon Perles, dextromethorphan. Nebulization with budesonide twice daily, DuoNebs every 4 hours. Status: Acute (2) 2019 novel coronavirus-infected pneumonia (NCIP): Return to the hospital after recent after 4 days of treatment 1 day after discharge. Status: Acute (3) Elevated d-dimer: Secondary to COVID-19. Recheck level. Status: Acute (4) Transaminitis: Resolved. Minimal, secondary to COVID-19. Status: Acute (5) Morbid obesity: Status: Acute (6) Hyperglycemia: Status: Acute Additional A&P Information Morbid obesity Thyroid cyst Hyperglycemia: No history of type 2 diabetes mellitus. HbA1c 4.9. Most likely secondary to steroids. Changed to high-dose protocol. Nystatin swish and swallow. Full code. Mechanical soft diet. Glucerna supplementation. Eliquis will help with DVT prophylaxis. Famotidine for PUD prophylaxis. Plan for the day: Out of bed to chair, continue with dexamethasone. Levaquin dose completed. Continue to monitor off antibiotics. Continue to encourage sitting up in chair, aggressive pulmonary toilet with I-S and Acapella. IV Lasix 1 dose. Wean oxygen keeping saturation in high 80s. Occupational therapy evaluation. Continue with nystatin swish and swallow and powder. Change insulin sliding scale to high-dose protocol for better sugar control. Hold lisinopril. Monitor blood pressures with goal less than 140/90 mmHg. Discharge planning: Discussed in detail with patient regarding possible transfer [facility] for [facility] going forward as patient would need further rehabitation for at least 2 to 3 weeks before she can go back home on lower oxygen requirements. Patient verbalized understanding and is agreeable for [facility] if possible. Case management has been alerted. Attestations Medical Necessity Statement*: Requires further hospitalization for management of hypoxic respiratory failure secondary COVID-19 pneumonia as patient is high flow dependent Time Spent in Patient Care: Greater than 35 minutes (>than 50% of time spent in counselling and/or direct pt care on unit). Coding Level of Care Code Acute Desk Representative for [facility] Fwd Diagnoses Respiratory failure with hypoxia J96.91 2019 novel coronavirus-infected pneumonia (NCIP) U07.1; J12.82 Elevated d-dimer R79.89 Transaminitis R74.01 Morbid obesity E66.01 Hyperglycemia R73.9
--- NOTE | 2021-08-16 15:09 | PC.OT ---
Attempted to complete ot evaluation. Patient refused session stating she was tired and wasn't going to do anything.
[2021-08-16] MEDS: fluticasone nasal spray 16gm Btl 2 SPRAY INTRANASAL (15:46)
[2021-08-16] MEDS: dexamethasone 10 mg/mL INJ 6 MG IVP (17:22)
[2021-08-16 17:34] LABS: Glucose Point of Care 98 mg/dL (70-110)
--- NOTE | 2021-08-16 20:05 | PC.NURSE ---
Shift note Pt is up in chair since around 08:30sh this morning until 3:30 pm. HHF at 60% on 30 L. Then she decided to go back in bed until 3:30 pm. Myranda-cares provided. cleanse her abdominal folds and breast folds, applied inter dry. pt stated she wants nystatin cream than the powder. Informed
[2021-08-16 20:31] LABS: Glucose Point of Care 148 mg/dL (70-110)
[2021-08-16] MEDS: insulin lispro 100 unit/1 mL SUBCUT (21:15)
[2021-08-16] MEDS: trazodone 50 mg Tablet PO (21:16)
[2021-08-17] VITALS (21 sets, daily range): BP systolic 75–132; BP diastolic 50–74; PULSE 74–112; RESP 13–31; TEMP 36.6–37; O2SAT 90–94
[2021-08-17 03:28] LABS: Basophils % 0.3 %; Eosinophils % 0.2 %; Hematocrit 38.3 % (37.0-47.0); Hemoglobin 12.3 g/dL (11.5-15.3); Lymphocytes # 0.9 10^3/uL (0.8-4.8); Lymphocytes % 7.4 %; Mean Corpuscular HGB Conc 32.1 g/dL (30.0-36.0); Mean Corpuscular Hemoglobin 28.6 pg (28.0-34.0); Mean Corpuscular Volume 89.1 fl (81-99); Mean Platelet Volume 10.4 fL (7.4-10.4); Monocytes # 0.7 10^3/uL (0.2-0.9); Monocytes % 5.1 %; Neutrophils # 10.29 10^3/uL (1.8-7.7); Neutrophils % 81.3 %; Nucleated Red Blood Cells % 0 %; Platelet Count 264 10^3/cmm (130-400); Red Cell Distribution Width 14.2 % (12.1-15.1); White Blood Count 12.7 10^3/uL (4.0-10.0)
[2021-08-17 03:40] LABS: D Dimer 2.75 ug/mIFEU (0-0.59)
[2021-08-17 03:45] LABS: Alanine Aminotransferase 24 U/L (0-33); Albumin Level 2.6 g/dL (3.5-5.2); Alkaline Phosphatase 53 IU/L (35-105); Anion Gap 11.1 (5-19); Aspartate Amino Transferase 32 U/L (0-32); Blood Urea Nitrogen 17 mg/dL (6-20); C Reactive Protein 93.2 mg/L (0.0-4.9); Calcium 7.9 mg/dL (8.5-10.5); Carbon Dioxide 28 mmol/L (22-29); Chloride 97 mmol/L (98-107); Glomerular Filtration Rate 75.3 mL/min (90-130); Glucose 203 mg/dL (65-115); Osmolality Calculated 281 mOsm/kg (285-295); Potassium 4.1 mmol/L (3.5-5.1); Sodium 132 mmol/L (136-145); Total Bilirubin 0.7 mg/dL (0.15-1.2); Total Protein 5.6 g/dL (6.6-8.7)
[2021-08-17 03:58] LABS: Slide Review Slide Review Perform
[2021-08-17] MEDS: ipratropium-albuterol 3 mL Neb INHALATION ×5 (04:30→23:49)
[2021-08-17] MEDS: montelukast sodium 10 mg Tablet PO (05:24)
[2021-08-17] MEDS: cetirizine 10 mg Tablet PO (05:24)
[2021-08-17 06:41] LABS: Glucose Point of Care 164 mg/dL (70-110)
[2021-08-17] MEDS: ascorbic acid 500 mg Tablet PO ×2 (08:45→18:50)
[2021-08-17] MEDS: zinc gluconate 50 mg Tablet PO (08:45)
[2021-08-17] MEDS: famotidine 20 mg Tablet PO ×2 (08:45→18:48)
[2021-08-17] MEDS: apixaban 5 mg Tablet PO ×2 (08:45→21:09)
[2021-08-17] MEDS: nystatin 100,000 unit/mL UDC 5 mL 100000 UNIT PO ×3 (08:46→18:51)
[2021-08-17] MEDS: benzonatate 100 mg Capsule 200 MG PO (08:46)
[2021-08-17] MEDS: insulin lispro 100 unit/1 mL SUBCUT ×4 (08:48→21:10)
[2021-08-17] MEDS: budesonide 0.5 mg/2 mL Neb INHALATION ×2 (09:40→19:56)
[2021-08-17] MEDS: metoprolol tartrate 25 mg Tablet PO ×2 (11:21→21:10)
[2021-08-17] MEDS: fluticasone nasal spray 16gm Btl 2 SPRAY INTRANASAL (11:21)
[2021-08-17] MEDS: ferrous gluconate 324 mg Tablet PO ×2 (11:21→18:48)
[2021-08-17] MEDS: nystatin cream 30 gm 1 APPLIC TOPICAL (12:33)
[2021-08-17 12:36] LABS: Glucose Point of Care 163 mg/dL (70-110)
[2021-08-17 13:59] LABS: Add Urine Microscopic? YES; Bilirubin Urine 1+ (Negative); Blood Urine 3+ (Negative); Glucose Urine UA Norm (Normal); Ketones Urine 1+ (Negative); Leukocyte Esterase Urine 2+ (Negative); Nitrate Urine Negative (Negative); Protein Urine 1+ (Negative); Urine Appearance Hazy (CLEAR); Urine Color Dark Yellow (Yellow); Urobilinogen Urine 1 mg/dL (Negative); pH Urine 5 (5-7)
[2021-08-17 14:00] LABS: Add Urine Culture? Yes; Bacteria Urine 2+ /hpf; RBC Urine >100 /hpf (0-2); Squamous Epithelial Cell Urine 0-4 /hpf (0-5); WBC Urine 80-100 /hpf (0-5)
--- NOTE | 2021-08-17 14:26 | P.PN_ITS ---
Subjective Subjective: Interval history: No acute events overnight. Patient has remained hemodynamically stable. T-max 1 episode of 100.5 Fahrenheit fever. Not sure if the fever was revealed. Patient denies any nausea, vomiting, headache. States her appetite is better. She is requesting for Ensure other than Glucerna. Working well with I-S and Acapella. Wants to sit in chair. Oxygen rajput pplementation mildly turned down to 30 L 50% heated high flow. Vitals/I&O/Wt Last Vital Signs Temp 98.3 F 08/17/21 03:15 Pulse 78 08/17/21 12:15 Resp 18 08/17/21 12:15 BP 107/57 08/17/21 03:15 Pulse Ox 91 08/17/21 12:15 08/16/21 08/17/21 08/17/21 22:59 06:59 14:59 Output Total 500 / 500 Balance -500 / -140 Weight last 48 hrs Weight 190.282 kg Weight 190.962 kg Physical Exam Narrative: EXAM NARRATIVE: General: No acute distress, AO x3, morbidly obese on heated high flow, getting extremely distressed with respiration on minimal movement from bed to chair with use of accessory muscle HEENT: PERRLA, pupils bilaterally equal and reactive Chest: Bilateral decreased airway entry, bilateral bronchial breath sounds with coarse crackles in bilateral lower zone CVS: S1-S2 regular, no murmurs, no tachycardia, no gallops, no rubs Abdomen: Soft, nontender, no organomegaly, bowel sounds present Neuro: No focal deficits, no facial deformity, AO x3, power 5/5 in all limbs Urinary Catheter Management^: Bailey: Cath Placed During This Visit: yes Reason for Continuing Indwelling Catheter: Accurate Measurement of Urinary Output in Critically Ill Patients Urinary Catheter Date of Insertion: 08/12/21 Urinary Catheter Time of Insertion: 16:00 Data : 08/17/21 03:14 08/17/21 03:14 Micro: Microbiology 08/12/21 10:50 Blood Culture - Final Blood NO GROWTH AFTER 5 DAYS 08/12/21 10:37 Blood Culture - Final Blood NO GROWTH AFTER 5 DAYS 08/17/21 03:10 Blood Culture - Preliminary Blood SPECIMEN COLLECTED 08/17/21 03:14 Blood Culture - Preliminary Blood SPECIMEN COLLECTED A&P Assessment and plan (1) Respiratory failure with hypoxia: Recent discharge 2 days ago after treatment for COVID-19 with remdesivir. Continue dexamethasone 6 mg IV daily. Last dose on August 20. D-dimer elevated on admission. Unfortunately she is not able to able lie down flat so CTA could not be done. For now continue with Eliquis 5 mg twice daily. D-dimer mildly elevated today. Oxygen supplementation trending down. For now we will continue with Eliquis 5 mg twice daily and continue to trend D-dimer. Patient already started on baricitinib. For now we will continue. We will monitor inflammatory markers including CRP, D-dimer, ferritin, proBNP every 48 hourly. CRP and D-dimer elevated today for the first time in last 1 week. Continue to monitor for now. For now pro-Giovanny negative, urine Legionella bacterial antigen, MRSA swab negative. Patient is already finished a course of Levaquin on August 15. Patient febrile overnight. Recheck procalcitonin, urinalysis, urine culture if needed, blood culture. Start patient on ceftriaxone 1 g IV daily. We will try to keep patient as negative as possible. Echocardiogram shows an EF of 67% without regional wall motion abnormality, no pericardial effusion. Hold off on Lasix for today. Fluid restriction up to 1500 cc, strict input output charting. Incentive spirometry, flutter valve. Vitamin C, zinc. Tessalon Perles, dextromethorphan. Nebulization with budesonide twice daily, DuoNebs every 4 hours. Status: Acute (2) 2019 novel coronavirus-infected pneumonia (NCIP): Return to the hospital after recent after 4 days of treatment 1 day after discharge. Status: Acute (3) Elevated d-dimer: Secondary to COVID-19. Recheck level. Status: Acute (4) Transaminitis: Resolved. Minimal, secondary to COVID-19. Status: Acute (5) Morbid obesity: Status: Acute (6) Hyperglycemia: Status: Acute Additional A&P Information Morbid obesity Thyroid cyst Hyperglycemia: No history of type 2 diabetes mellitus. HbA1c 4.9. Most likely secondary to steroids. Changed to high-dose protocol. Nystatin swish and swallow. Full code. Mechanical soft diet. Ensure supplementation. Eliquis will help with DVT prophylaxis. Famotidine for PUD prophylaxis. Plan for the day: Patient febrile overnight. Check urinalysis, urine culture, procalcitonin, blood culture. Start patient on ceftriaxone. Continue with Eliquis, dexamethasone, nystatin swish and swallow twice daily. Out of bed to chair. Continue with I-S and Acapella. Wean down oxygen supplementation keeping saturation more than high 80s. Switch Glucerna to Ens ure for patient preference. PT/OT evaluation and management. Discharge planning: Patient agreeable to [facility] for further pulmonary rehabilitation as patient would need prolonged rehab for oxygen weaning. Case management has been alerted. Awaiting acceptance and author ization. Attestations Medical Necessity Statement*: Requires further hospitalization for management of hypoxic respiratory failure secondary to COVID-19 pneumonia as patient is heated high flow dependent Time Spent in Patient Care: Greater than 35 minutes (>than 50% of time spent in counselling and/or direct pt care on unit) . Coding Level of Care Code Acute Planning Management It Specialist for P[facility] Diagnoses Respiratory failure with hypoxia J96.91 2019 novel coronavirus-infected pneumonia (NCIP) U07.1; J12.82 Elevated d-dimer R79.89 Transaminitis R74.01 Morbid obesity E66.01 Hyperglycemia R73.9
[2021-08-17] MEDS: benzonatate 100 mg Capsule PO ×2 (15:05→21:09)
[2021-08-17] MEDS: cefTRIAXone 1,000 MG in sodium chloride 0.9% (plus) 50 ML 100 MG IV (15:05)
[2021-08-17 17:24] LABS: Glucose Point of Care 163 mg/dL (70-110)
[2021-08-17 17:39] LABS: Procalcitonin 0.07 ng/mL (0-0.5)
[2021-08-17] MEDS: dexamethasone 10 mg/mL INJ 6 MG IVP (18:47)
--- NOTE | 2021-08-17 19:55 | PC.NURSE ---
Shift note Pt has been pleasant this shift. she stated this morning that she got a good night rest. Her spO2 fluctuates between 86-94% on HHF. She sat up in the chair this morning until almost 4 pm. she had 2 BMs. denies any pain or discomfort.
[2021-08-17 20:04] LABS: Glucose Point of Care 256 mg/dL (70-110)
[2021-08-17] MEDS: trazodone 50 mg Tablet PO (21:09)
[2021-08-18] VITALS (17 sets, daily range): BP systolic 106–122; BP diastolic 61–78; PULSE 84–101; RESP 17–24; TEMP 36.4–37; O2SAT 89–95
[2021-08-18] MEDS: ipratropium-albuterol 3 mL Neb INHALATION ×6 (04:00→23:34)
[2021-08-18 04:01] LABS: Basophils % 0.3 %; Eosinophils % 0.1 %; Hematocrit 36.7 % (37.0-47.0); Hemoglobin 12.3 g/dL (11.5-15.3); Lymphocytes # 0.7 10^3/uL (0.8-4.8); Lymphocytes % 5.6 %; Mean Corpuscular HGB Conc 33.5 g/dL (30.0-36.0); Mean Corpuscular Hemoglobin 29.1 pg (28.0-34.0); Mean Corpuscular Volume 86.8 fl (81-99); Mean Platelet Volume 10.7 fL (7.4-10.4); Monocytes # 0.7 10^3/uL (0.2-0.9); Monocytes % 5.1 %; Neutrophils # 10.75 10^3/uL (1.8-7.7); Neutrophils % 81.3 %; Nucleated Red Blood Cells % 0 %; Platelet Count 296 10^3/cmm (130-400); Red Blood Count 4.23 10^6/uL (4.1-5.3); Red Cell Distribution Width 13.9 % (12.1-15.1); White Blood Count 13.2 10^3/uL (4.0-10.0)
[2021-08-18 04:44] LABS: Alanine Aminotransferase 29 U/L (0-33); Albumin Level 2.7 g/dL (3.5-5.2); Alkaline Phosphatase 49 IU/L (35-105); Anion Gap 11.7 (5-19); Aspartate Amino Transferase 31 U/L (0-32); Blood Urea Nitrogen 12 mg/dL (6-20); Calcium 8.1 mg/dL (8.5-10.5); Carbon Dioxide 28 mmol/L (22-29); Chloride 99 mmol/L (98-107); Globulin 2.8 g/dL (1.3-4.6); Glomerular Filtration Rate 87.9 mL/min (90-130); Glucose 205 mg/dL (65-115); Osmolality Calculated 286 mOsm/kg (285-295); Potassium 3.7 mmol/L (3.5-5.1); Sodium 135 mmol/L (136-145); Total Bilirubin 0.4 mg/dL (0.15-1.2); Total Protein 5.5 g/dL (6.6-8.7)
[2021-08-18 04:47] LABS: C Reactive Protein 65.7 mg/L (0.0-4.9)
[2021-08-18 04:57] LABS: Slide Review Slide Review Perform
[2021-08-18 05:38] LABS: D Dimer 3.11 ug/mIFEU (0-0.59)
[2021-08-18] MEDS: cetirizine 10 mg Tablet PO (05:40)
--- NOTE | 2021-08-18 06:00 | XRR_ITS ---
PROCEDURE INFORMATION: Exam: XR Chest Exam date and time: 08/18/2021 6:00 AM Age: 50 years old Clinical indication: Shortness of breath; Additional info: Covid TECHNIQUE: Imaging protocol: XR of the chest. Views: 1 view. COMPARISON: CR XR chest 1V portable [id number] 08/16/2021 6:21 AM FINDINGS: Lungs: There are extensive diffuse bilateral pulmonary infiltrates which are unchanged. Pleural spaces: Unremarkable. No pleural effusion. No pneumothorax. Heart/Mediastinum: Unremarkable. No cardiomegaly. Bones/joints: Unremarkable. XR/XR chest 1V portable [id number] IMPRESSION: Stable extensive diffuse bilateral pulmonary infiltrates. Radiation Dose CTDIVOL = (mGy): DLP = (mGy-cm)
--- NOTE | 2021-08-18 06:31 | PC.NURSE ---
Frequent safety and comfort rounds continue. Orders and/or nursing care completed as indicated. Patient monitored for response to intervention and treatment(s). Education provided includes need for self care to aide in healing. Patient and/or retail wireless sales representative verbalize understanding. Will continue to monitor.
[2021-08-18 07:14] LABS: Glucose Point of Care 186 mg/dL (70-110)
[2021-08-18] MEDS: FUROsemide 10 mg/mL SDV 4mL 40 MG IVP (09:00)
[2021-08-18] MEDS: famotidine 20 mg Tablet PO ×2 (09:07→17:21)
[2021-08-18] MEDS: ascorbic acid 500 mg Tablet PO ×2 (09:07→17:21)
[2021-08-18] MEDS: zinc gluconate 50 mg Tablet PO (09:07)
[2021-08-18] MEDS: benzonatate 100 mg Capsule PO ×3 (09:07→21:50)
[2021-08-18] MEDS: ferrous gluconate 324 mg Tablet PO ×2 (09:07→17:21)
[2021-08-18] MEDS: apixaban 5 mg Tablet PO ×2 (09:07→21:50)
[2021-08-18] MEDS: metoprolol tartrate 25 mg Tablet PO ×2 (09:07→21:54)
[2021-08-18] MEDS: nystatin 100,000 unit/mL UDC 5 mL 100000 UNIT PO ×2 (09:08→17:21)
[2021-08-18] MEDS: insulin lispro 100 unit/1 mL SUBCUT ×4 (09:11→21:51)
[2021-08-18] MEDS: budesonide 0.5 mg/2 mL Neb INHALATION ×2 (09:11→20:04)
[2021-08-18] MEDS: fluticasone nasal spray 16gm Btl 2 SPRAY INTRANASAL (10:12)
[2021-08-18] MEDS: nystatin cream 30 gm 1 APPLIC TOPICAL ×3 (10:13→19:06)
[2021-08-18 12:34] LABS: Glucose Point of Care 183 mg/dL (70-110)
--- NOTE | 2021-08-18 13:06 | P.PN_ITS ---
Subjective Subjective: Interval history: No acute events overnight. Today morning patient sitting up in chair. Oxygen supplementation turned down to 10 L high flow nasal cannula with patient saturating more than 92%. Patient continues to do pretty well. Working well with I-S and Acapella. Vitals/I&O/Wt Last Vital Signs Temp 97.6 F 08/18/21 08:00 Pulse 96 08/18/21 11:59 Resp 20 H 08/18/21 11:59 BP 117/71 08/18/21 08:00 Pulse Ox 95 08/18/21 11:59 08/17/21 08/18/21 08/18/21 22:59 06:59 14:59 Intake Total 938 / 1410 467 / 467 Output Total 1900 / 1900 1000 / 1000 Balance -962 / -490 -533 / -533 Weight last 48 hrs Weight 190.31 kg Weight 190.282 kg Physical Exam Narrative: EXAM NARRATIVE: General: No acute distress, AO x3, morbidly obese on heated high flow, getting extremely distressed with respiration on minimal movement from bed to chair with use of accessory muscle HEENT: PERRLA, pupils bilaterally equal and reactive Chest: Bilateral decreased airway entry, bilateral bronchial breath sounds with coarse crackles in bilateral lower zone CVS: S1-S2 regular, no murmurs, no tachycardia, no gallops, no rubs Abdomen: Soft, nontender, no organomegaly, bowel sounds present Neuro: No focal deficits, no facial deformity, AO x3, power 5/5 in all limbs Urinary Catheter Management^: Bailey: Cath Placed During This Visit: yes Reason for Continuing Indwelling Catheter: Accurate Measurement of Urinary Output in Critically Ill Patients Urinary Catheter Date of Insertion: 08/12/21 Urinary Catheter Time of Insertion: 16:00 Data : 08/18/21 03:27 08/18/21 03:27 Micro: Microbiology 08/17/21 11:00 Urine Culture - Preliminary Urine,Clean Catch 08/17/21 03:10 Blood Culture - Preliminary Blood NEGATIVE TO DATE 08/17/21 03:14 Blood Culture - Preliminary Blood NEGATIVE TO DATE 08/12/21 10:50 Blood Culture - Final Blood NO GROWTH AFTER 5 DAYS 08/12/21 10:37 Blood Culture - Final Blood NO GROWTH AFTER 5 DAYS A&P Assessment and plan (1) Respiratory failure with hypoxia: Recent discharge 2 days ago after treatment for COVID-19 with remdesivir. Continue dexamethasone 6 mg IV daily. Last dose on August 20. D-dimer elevated on admission. Unfortunately she is not able to able lie down flat so CTA could not be done. For now continue with Eliquis 5 mg twice daily. D-dimer mildly elevated today. Oxygen supplementation trending down. For now we will continue with Eliquis 5 mg twice daily and continue to trend D-dimer. Patient already started on baricitinib. For now we will continue. We will monitor inflammatory markers including CRP, D-dimer, ferritin, proBNP every 48 hourly. C CRP plateauing again. Continue to monitor. For now pro-Giovanny negative, urine Legionella bacterial antigen, MRSA swab negative. Patient is already finished a course of Levaquin on August 15. Patient febrile overnight on 08/16. Recheck procalcitonin negative. Urinalysis concerning for possible UTI. Urine culture pending. For now continue with ceftriaxone 1 g IV daily. We will try to keep patient as negative as possible. Echocardiogram shows an EF of 67% without regional wall motion abnormality, no pericardial effusion. Repeat dose of IV Lasix today. Fluid restriction up to 1500 cc, strict input output charting. Incentive spirometry, flutter valve. Vitamin C, zinc. Tessalon Perles, dextromethorphan. Nebulization with budesonide twice daily, DuoNebs every 4 hours. Status: Acute (2) 2019 novel coronavirus-infected pneumonia (NCIP): Return to the hospital after recent after 4 days of treatment 1 day after discharge. Status: Acute (3) Elevated d-dimer: Secondary to COVID-19. Recheck level. Status: Acute (4) Transaminitis: Resolved. Minimal, secondary to COVID-19. Status: Acute (5) Morbid obesity: Status: Acute (6) Hyperglycemia: Status: Acute Additional A&P Information Morbid obesity Thyroid cyst Hyperglycemia: No history of type 2 diabetes mellitus. HbA1c 4.9. Most likely secondary to steroids. Changed to high-dose protocol. Nystatin swish and swallow. Full code. Mechanical soft diet. Ensure supplementation. Eliquis will help with DVT prophylaxis. Famotidine for PUD prophylaxis. Plan for the day: Continue weaning oxygen supplementation keeping saturation over 88%. Continue with IV ceftriaxone. Continue out of bed to chair, I-S and Acapella, physical therapy. Discharge planning: Patient agreeable to go to [facility] if needed for further pulmonary rehabilitation as patient would need prolonged rehab for oxygen weaning. Case management has been alerted. Awaiting acceptance and autho rization. If patient continues to do better continue with plan to discharge home with home health if oxygen supplementation comes down less than 5 L. Attestations Medical Necessity Statement*: Requires further hospitalization for management of hypoxia secondary COVID-19 pneumonia Time Spent in Patient Care: Greater than 35 minutes (>than 50% of time spent in counselling and/or direct pt care on unit) . Coding Level of Care Code Acute Blood Bank Business Manager for [facility] Fwd Diagnoses Respiratory failure with hypoxia J96.91 2019 novel coronavirus-infected pneumonia (NCIP) U07.1; J12.82 Elevated d-dimer R79.89 Transaminitis R74.01 Morbid obesity E66.01 Hyperglycemia R73.9
[2021-08-18] MEDS: cefTRIAXone 1,000 MG in sodium chloride 0.9% (plus) 50 ML 100 MG IV (13:35)
--- NOTE | 2021-08-18 17:00 | PC.NURSE ---
RT is okay to put pt on Nasal canula during PT exercises Pt is on 6 L Nasal Cannula, Spo2 is 92 to 93%.tolerating okay.
[2021-08-18 17:07] LABS: Glucose Point of Care 149 mg/dL (70-110)
[2021-08-18] MEDS: dexamethasone 10 mg/mL INJ 6 MG IVP (17:21)
--- NOTE | 2021-08-18 18:07 | PC.NURSE ---
pt stated she wants her catheter connolly out due to discomfort and pain informed doctor. decision to remove her connolly catheter.
[2021-08-18 20:23] LABS: Glucose Point of Care 186 mg/dL (70-110)
[2021-08-18] MEDS: trazodone 50 mg Tablet PO (21:50)
[2021-08-19] VITALS (9 sets, daily range): BP systolic 116–149; BP diastolic 77–95; PULSE 87–98; RESP 20–32; O2SAT 88–97
[2021-08-19] MEDS: ipratropium-albuterol 3 mL Neb INHALATION ×3 (04:26→11:52)
[2021-08-19] MEDS: cetirizine 10 mg Tablet PO (05:30)
[2021-08-19 06:18] LABS: Hematocrit 38.4 % (37.0-47.0); Hemoglobin 12.6 g/dL (11.5-15.3); Mean Corpuscular HGB Conc 32.8 g/dL (30.0-36.0); Mean Corpuscular Hemoglobin 28.5 pg (28.0-34.0); Mean Corpuscular Volume 86.9 fl (81-99); Platelet Count 335 10^3/cmm (130-400); Red Blood Count 4.42 10^6/uL (4.1-5.3); Red Cell Distribution Width 14.1 % (12.1-15.1); White Blood Count 12.6 10^3/uL (4.0-10.0)
[2021-08-19 06:25] LABS: Glucose Point of Care 160 mg/dL (70-110)
[2021-08-19 06:26] LABS: D Dimer 3.08 ug/mIFEU (0-0.59)
[2021-08-19 06:51] LABS: Alanine Aminotransferase 46 U/L (0-33); Albumin Level 3.2 g/dL (3.5-5.2); Alkaline Phosphatase 54 IU/L (35-105); Aspartate Amino Transferase 48 U/L (0-32); Blood Urea Nitrogen 16 mg/dL (6-20); C Reactive Protein 33.1 mg/L (0.0-4.9); Calcium 8.2 mg/dL (8.5-10.5); Carbon Dioxide 28 mmol/L (22-29); Chloride 101 mmol/L (98-107); Globulin 2.6 g/dL (1.3-4.6); Glomerular Filtration Rate 87.9 mL/min (90-130); Glucose 174 mg/dL (65-115); Osmolality Calculated 293 mOsm/kg (285-295); Sodium 139 mmol/L (136-145); Total Bilirubin 0.4 mg/dL (0.15-1.2); Total Protein 5.8 g/dL (6.6-8.7)
[2021-08-19 06:58] LABS: Anion Gap 13.5 (5-19); Potassium 3.5 mmol/L (3.5-5.1)
[2021-08-19] MEDS: budesonide 0.5 mg/2 mL Neb INHALATION (07:58)
[2021-08-19 08:25] LABS: Slide Review Slide Review Perform
[2021-08-19 08:29] LABS: Absolute Segmented Neutrophil 11.1 10/cmm (1.6-7.1); Band Neutrophils Absolute 0.6 10^3/cmm (0.0-1.2); Eosinophils 0 %; Lymphocytes 5 %; Lymphocytes Absolute 0.6 10^3/cmm (1.2-3.4); Monocytes Absolute 0.1 10^3/cmm (0.1-0.6); Segmented Neutrophils 88 %; Total Cells Counted 100 (0-100)
[2021-08-19 08:30] LABS: Absolute Neutrophil 11.7 10^3/cmm (1.4-6.5); Giant Platelets 1+; Platelet Estimate Normal (Normal); Smudge Cells Trace
--- NOTE | 2021-08-19 09:16 | PC.CHAP ---
Pastoral Care Encounter/Spiritual Assessment Type of Contact [] Declined fork repairer visit [] Patient/Family/Request visit [] Outpatient visit [] Follow-up visit [] Physician referral [] Code/Alert [x] Routine visit [] Staff referral [] Actively dying [] Patient sleeping [] Family support [] [] Out of room [] Palliative care [] [] Receiving care in room [] Pre-surgical visit [] Trauma [] Long length of stay [] ICU visit [x] Other: covid Relational/Emotional Strength [] Patient feels connected with others/family/visitors/staff [] Distress [] Loneliness/isolation [] Abandonment Spirituality of Patient [] Person of Radha [] Attends Pentecostal of their Radha [] Believes in Prayer [] Reads Bible or Baptist materials [] There are Spiritual issues to be addressed Cylinder Sander Operator Interventions [x] Prayer [x] Active listening [x] Non-anxious presence [x] Spiritual/emotional support [] Crisis/trauma care [] Spiritual counseling [] Bereavement support [] Provided bereavement packet [] Provided Bible/devotional materials [] Provided toy/stuffed animal, coloring book to patient or family member [] Provided Communion [] Anointing/[place] [] Salvation [x] Completed spiritual assessment [] Other: Impact on Illness or Injury [] Angry [] Fearful [] Anxious [] Often cries [] Exhaustion [] Unable to work [] Unable to attend oriental orthodox [] Unable to walk/stand [] Unable to read [] Unable to drive [] Unable to eat/drink [] Unable to sleep [] Unable to be with family [] Patient intubated [] Other: Summary feelings like she needs to go home... Time spent with patient 5 min
[2021-08-19] MEDS: nystatin 100,000 unit/mL UDC 5 mL 100000 UNIT PO (10:10)
[2021-08-19] MEDS: insulin lispro 100 unit/1 mL SUBCUT ×2 (10:11→12:56)
[2021-08-19] MEDS: benzonatate 100 mg Capsule PO (10:12)
[2021-08-19] MEDS: famotidine 20 mg Tablet PO (10:12)
[2021-08-19] MEDS: metoprolol tartrate 25 mg Tablet PO (10:12)
[2021-08-19] MEDS: apixaban 5 mg Tablet PO (10:12)
[2021-08-19] MEDS: ferrous gluconate 324 mg Tablet PO (10:13)
[2021-08-19] MEDS: zinc gluconate 50 mg Tablet PO (10:13)
[2021-08-19] MEDS: fluticasone nasal spray 16gm Btl 2 SPRAY INTRANASAL (10:14)
[2021-08-19] MEDS: ascorbic acid 500 mg Tablet PO (10:14)
[2021-08-19] MEDS: nystatin cream 30 gm 1 APPLIC TOPICAL (10:15)
[2021-08-19 11:58] LABS: Glucose Point of Care 149 mg/dL (70-110)
--- NOTE | 2021-08-19 12:48 | PC.OT ---
OT TREATMENT ATTEMPTED; PATIENT REPORTS THAT SHE IS BEING DISCHARGED TODAY AND WANTS TO FOCUS ON THAT. DECLINES OT TREATMENT AT THIS TIME.
--- NOTE | 2021-08-19 13:19 | P.DS_ITS ---
Discharge Providers Date of Admission: 08/11/21 18:46 Date of Discharge: August 19, 2021 Attending Provider at Admission: Jason Leonard Attending Provider at Discharge: Jason Leonard Primary Care Provider: RAND Mares Diagnoses at Discharge Discharge Diagnosis (1) Respiratory failure with hypoxia: Status: Acute (2) 2019 novel coronavirus-infected pneumonia (NCIP): Status: Acute (3) Elevated d-dimer: Status: Acute (4) Transaminitis: Status: Acute (5) Morbid obesity: Status: Acute (6) Hyperglycemia: Status: Acute Reason for Visit Reason for Visit: RESP DISTRESS Hospital Course Hospital Course Pleasant 50-year-old lady was readmitted to the hospital due to hypoxic respiratory failure after recent discharge from treatment for COVID-19. Due to worsening hypoxic respiratory failure and oxygen requirement was restarted on treatment with Decadron, started on baricitinib, VT prophylaxis, her condition gradually improved, she weaned down off of BiPAP and then heated high flow, currently down to 4 L nasal cannula oxygen. She reports she is feeling much better. She has been getting up to the restroom in the room. She requests to return home. She states she has support from her 3 sons will be staying at her side at all times. She already has oxygen set up from prior admission. She understands to seek medical attention in case of any worsening. During hospitalization she was noted to have hyperglycemia, with A1c is 4.9. Suspected secondary to steroid. Please follow-up sugars in office. Also noted to have transaminitis, mild elevation today AST 48, ALT 46. Please follow-up liver parameters in office. Due to persistent D-dimer elevation, 3.08, reduce mobility due to morbid obesity, protracted course of COVID-19, she is continuing at this time on additional thromboprophylaxis with Xarelto 10 mg daily for 2 more weeks. Please reassess and discontinue or extend depending on her recovery. During the hospitalization also noted to have urinary tract infection for which was started initially on ceftriaxone. Currently is growing yeast for which she will complete a course of Diflucan. Nystatin also for intertrigo. Please continue follow-up with regards to chronic conditions and help her with weight management. Physical Exam Const: COMMON NORMALS: no acute distress and patient oriented x3 HENMT: COMMON NORMALS: oropharynx normal Neck/C-Spine: COMMON NORMALS: no JVD Resp: COMMON NORMALS: normal respiratory effort and clear to auscultation bilaterally AUSCULTATION: clear to auscultation bilaterally Cardio: COMMON NORMALS: no JVD, regular rhythm, S1 normal heart sound present, S2 normal heart sound present and No murmurs present (Cardio) RHYTHM: regular rhythm HEART SOUNDS: S1 normal heart sound present and S2 normal heart sound present GI: COMMON NORMALS: Normal to inspection, nondistended, normoactive bowel sounds present, Soft to palpation and non-tender PALPATION: Yes Soft to palpation Extremity: COMMON NORMALS: no joint enlargement and no pedal edema Neuro: COMMON NORMALS: patient oriented x3 and moves all extremities Skin: COMMON NORMALS: no rashes or lesions noted GENERAL SKIN EXAM: no rashes or lesions noted Urinary Catheter Management^: Bailey: Cath Placed During This Visit: yes, but has since been removed by the nurse Reason for Continuing Indwelling Catheter: Decision to DC Catheter Urinary Catheter Date of Insertion: 08/12/21 Urinary Catheter Time of Insertion: 16:00 Date Urinary Catheter Removed: 08/18/21 Time Urinary Catheter Discontinued: 18:06 Discharge Data Data Completed and Pending: Completed Studies During Hospitalization Category Date Time Status XR chest 1V chela ble 60109 Q48H Exams 08/14/21 06:00 Completed XR chest 1V chela ble [id number] Q48H Exams 08/16/21 06:00 Completed XR chest 1V chela ble [id number] Q48H Exams 08/18/21 06:00 Completed XR chest 1V cehla ble [id number] Urgent Exams 08/11/21 16:54 Completed CV. echo complete * [id number] Routine Ultrasound 08/12/21 09:06 Completed Pending at discharge Category Date Time Status Blood Culture AM LABS Lab 08/17/21 03:10 Results Urine Culture Rou adrián Lab 08/17/21 11:00 Results Labs from last 24 hours 08/19/21 08/19/21 08/19/21 11:37 06:16 05:48 WBC RBC Hgb Hct MCV MCH MCHC RDW Plt Count MPV Lymph % (Auto) [place] % (Auto) Lymph # (Auto) [place] # (Auto) Total Counted Atypical Lymphs % Absolute Neutrophi ls Segmented Neutroph ils Abs Segm Neuts (Ma n) Band Neutrophils Abs Band Neuts (Ma n) Absolute Lymphocyt es Lymphocytes (Manua l) Monocytes (Manual) Absolute Monocytes Eosinophils (Manua l) Absolute Eosinophi ls Basophils (Manual) Absolute Basophils Metamyelocytes Smudge Cells Platelet Estimate Giant Platelets D-Dimer 3.08 H Sodium Potassium Chloride Carbon Dioxide Anion Gap BUN Creatinine GFR Calculation Glucose POC Glucose 149 H 160 H Calculated Osmolal ity Calcium Total Bilirubin AST ALT Alkaline Phosphata se C-Reactive Protein Total Protein Albumin Globulin 08/19/21 08/19/21 08/18/21 05:48 05:48 20:07 WBC 12.6 H RBC 4.42 Hgb 12.6 Hct 38.4 MCV 86.9 MCH 28.5 MCHC 32.8 RDW 14.1 Plt Count 335 MPV 11.0 H Lymph % (Auto) Not Reportable [place] % (Auto) Not Reportable Lymph # (Auto) Not Reportable [place] # (Auto) Not Reportable Total Counted 100 Atypical Lymphs % 0.0 Absolute Neutrophi ls 11.7 H Segmented Neutroph ils 88 Abs Segm Neuts (Ma n) 11.1 H Band Neutrophils 5.0 Abs Band Neuts (Ma n) 0.6 Absolute Lymphocyt es 0.6 L Lymphocytes (Manua l) 5 Monocytes (Manual) 1.0 Absolute Monocytes 0.1 Eosinophils (Manua l) 0 Absolute Eosinophi ls 0.0 Basophils (Manual) 0.0 Absolute Basophils 0.0 Metamyelocytes 1.0 Smudge Cells Trace Platelet Estimate Normal Giant Platelets 1+ H D-Dimer Sodium 139 Potassium 3.5 Chloride 101 Carbon Dioxide 28 Anion Gap 13.5 BUN 16 Creatinine 0.7 GFR Calculation 87.9 L Glucose 174 H POC Glucose 186 H Calculated Osmolal ity 293 Calcium 8.2 L Total Bilirubin 0.4 AST 48 H ALT 46 H Alkaline Phosphata se 54 C-Reactive Protein 33.1 H Total Protein 5.8 L Albumin 3.2 L Globulin 2.6 08/18/21 16:59 WBC RBC Hgb Hct MCV MCH MCHC RDW Plt Count MPV Lymph % (Auto) [place] % (Auto) Lymph # (Auto) [place] # (Auto) Total Counted Atypical Lymphs % Absolute Neutrophi ls Segmented Neutroph ils Abs Segm Neuts (Ma n) Band Neutrophils Abs Band Neuts (Ma n) Absolute Lymphocyt es Lymphocytes (Manua l) Monocytes (Manual) Absolute Monocytes Eosinophils (Manua l) Absolute Eosinophi ls Basophils (Manual) Absolute Basophils Metamyelocytes Smudge Cells Platelet Estimate Giant Platelets D-Dimer Sodium Potassium Chloride Carbon Dioxide Anion Gap BUN Creatinine GFR Calculation Glucose POC Glucose 149 H Calculated Osmolal ity Calcium Total Bilirubin AST ALT Alkaline Phosphata se C-Reactive Protein Total Protein Albumin Globulin Vitals: Last Vital Signs Temp 98 F 08/18/21 23:38 Pulse 97 08/19/21 11:52 Resp 22 H 08/19/21 11:52 BP 146/77 08/19/21 08:00 Pulse Ox 92 08/19/21 11:52 Discharge Plan Discharge Patient Disposition: Home Condition: Stable Prescriptions: New nystatin 100,000 unit/gram Cream 1 applic topical BID 14 Days Qty: 30 RF: 0 nystatin 100,000 unit/mL Suspension 100,000 unit PO BID 14 Days Qty: 28 RF: 0 Xarelto 10 mg tablet 10 mg PO DAILY 14 Days Qty: 14 RF: 0 fluconazole 100 mg tablet 100 mg PO DAILY 10 Days Qty: 10 RF: 0 Continued hydrochlorothiazide 25 mg tablet 25 mg PO QAM Qty: 90 RF: 1 acetaminophen 500 mg Tablet 500 mg PO Q4H PRN (Reason: Pain) RF: 0 albuterol sulfate 2.5 mg /3 mL (0.083 %) solution for nebulization 2.5 mg inhalation QID PRN (Reason: Shortness Of Breath) RF: 0 trazodone 50 mg tablet 50 mg PO BEDTIME RF: 0 cetirizine [Allergy Relief (cetirizine)] 10 mg tablet 10 mg PO QAM RF: 0 lisinopril 10 mg tablet 10 mg PO QAM RF: 0 montelukast 10 mg tablet 10 mg PO QAM RF: 0 ergocalciferol (vitamin D2) 1,250 mcg (50,000 unit) capsule 50,000 unit PO Q7D RF: 0 fluticasone propionate 50 mcg/actuation spray,suspension 2 spray intranasal DAILY RF: 0 melatonin 10 mg capsule 10 mg PO BEDTIME RF: 0 ascorbic acid (vitamin C) [Vitamin C] 500 mg Tablet 1,000 mg PO BID 7 Days Qty: 28 RF: 0 benzonatate 100 mg Capsule 200 mg PO TID PRN (Reason: Cough) 7 Days Qty: 21 RF: 0 zinc gluconate 50 mg Tablet 50 mg PO DAILY 7 Days Qty: 7 RF: 0 albuterol sulfate [ProAir HFA] 90 mcg/actuation HFA aerosol inhaler 2 puff INHALATION QID PRN (Reason: Shortness Of Breath) 30 Days RF: 0 Discontinued dexamethasone 2 mg tablet 2 mg PO DAILY Qty: 7 RF: 0 Discharge Orders: Discharge Order (Routine); Ordered 08/19/21 Ordered By: Jason Leonard Other Ambulatory Orders: DME: Walker (Order) Location: None Selected Ordered By: Juan Agrawal Referrals: Minerva Jefferson FNP [Primary Care Provider] - 4-7 days Discharge Diet: Advance as tolerated and Cardiac Discharge Activity: Increase activity as tolerated and Oxygen as instructed Patient Instructions: Rivaroxaban (By mouth), Viral Pneumonia (GEN), Hypoxia (GEN) Activity Restrictions/Additional Instructions: Continue oxygen at home, target saturation of 90% and above. Please seek medical attention immediately if you are experiencing severe fatigue, shortness of breath, chest pain pressure, or difficulties maintaining saturation above 88% despite being addressed, and increasing oxygen flow. Please note Diflucan as prescribed for yeast urinary tract infection. Please follow-up with your primary doctor for reassessment of your recovery from hypoxic respiratory failure from severe COVID-19, urinary tract infection. Reassessment also of glucose levels which have been noted elevated, likely secondary to the steroid. Please revisit with your primary doctor regarding extended prophylaxis for which you are prescribed Xarelto. This is to reduce the chance of blood clot formation risk of which is increased with COVID-19, with noted elevation in D- dimer here in the hospital, increased risk of blood clot. At this time course is given for 14 days, but discussed with her primary doctor to see depending on her recovery whether this may benefit from being extended a little longer or not. Please have your primary doctor follow-up regarding your liver tests, with noted mild elevation AST and ALT likely due to coronavirus. Please follow-up with your primary doctor to ascertain resolution. Discharge Attestations Time Spent in Discharge Care*: greater than 30 min Status at Discharge: Behavioral status at discharge: cooperative , Quality Metrics Clinical Quality Measures During this hospital stay, did patient experience: None Coding Level of Care Code Acute Chg FW DC note Diagnoses Respiratory failure with hypoxia J96.91 2019 novel coronavirus-infected pneumonia (NCIP) U07.1; J12.82 Elevated d-dimer R79.89 Transaminitis R74.01 Morbid obesity E66.01 Hyperglycemia R73.9
== END 2021-08-19 16:15 | disposition home or self-care (01) | DRG 177 ==
LOC: ER 18:49 → CSU 19:41
PROVIDERS: Student in an Organized Health Care Education/Training Program; Admitting Provider Internal Medicine; Emergency Provider Emergency Medicine; PCP Nurse Practitioner Family; Visit Provider Internal Medicine
DX: U07.1 COVID-19 (principal); J12.82 Pneumonia due to coronavirus disease 2019; J96.01 Acute respiratory failure with hypoxia; Z68.45 Body mass index [BMI] 70 or greater, adult; N39.0 Urinary tract infection, site not specified; Z99.81 Dependence on supplemental oxygen; I10 Essential (primary) hypertension; E66.01 Morbid (severe) obesity due to excess calories; E04.1 Nontoxic single thyroid nodule; G47.33 Obstructive sleep apnea (adult) (pediatric); R73.9 Hyperglycemia, unspecified; T38.0X5A Adverse effect of glucocorticoids and synthetic analogues, initial encounter; B37.9 Candidiasis, unspecified; Z79.51 Long term (current) use of inhaled steroids
CPT/HCPCS: 36415; 36416; 36600; 51702; 71045; 80051; 80053; 80061; 81001; 82330; 82728; 82805; 82962; 83036; 83540; 83550; 83735; 83880; 84145; 84443; 85007; 85025; 85378; 86140; 86403; 87040; 87070; 87086; 87106; 87205; 87449; 87641; 87804; 93306; 94640; 96372; 96374; 97110; 97161; 97166; 97530; 99285; J0696; J1100; J1650; J1815; J1940; J2405; J7626; J8540

== ENCOUNTER → 2021-09-02 14:03 | Outpatient (BNVA) | payer MEDICAID, SELFPAY | PROVIDERS: PCP Nurse Practitioner Family; Visit Provider Nurse Practitioner Family | DX: U07.1 COVID-19 (principal); R09.02 Hypoxemia; N39.0 Urinary tract infection, site not specified; J12.82 Pneumonia due to coronavirus disease 2019; R74.01 Elevation of levels of liver transaminase levels; R73.9 Hyperglycemia, unspecified; Z68.45 Body mass index [BMI] 70 or greater, adult | CPT/HCPCS: 71046; 80053; 85007; 85027; 85379 ==

== ENCOUNTER → 2021-09-04 12:12 | Outpatient (BNVA) | payer MEDICAID, SELFPAY | PROVIDERS: PCP Nurse Practitioner Family; Visit Provider Nurse Practitioner Family | DX: R74.01 Elevation of levels of liver transaminase levels (principal) | CPT/HCPCS: 81003; 87077; 87086; 87184 ==

== ENCOUNTER → 2022-01-23 10:19 | Outpatient (BNVA) | payer MEDICAID, SELFPAY | PROVIDERS: PCP Nurse Practitioner Family; Visit Provider Internal Medicine Pulmonary Disease | DX: J45.20 Mild intermittent asthma, uncomplicated (principal); R06.09 Other forms of dyspnea; U09.9 Post COVID-19 condition, unspecified; I10 Essential (primary) hypertension; R09.02 Hypoxemia; R73.9 Hyperglycemia, unspecified | CPT/HCPCS: 36415; 82785; 86003; 99204 ==

== ENCOUNTER → 2022-10-07 18:38 | Outpatient (BNVA) | payer MEDICAID, SELFPAY | PROVIDERS: PCP Nurse Practitioner Family; Visit Provider Nurse Practitioner Family | DX: M54.50 Low back pain, unspecified (principal); G89.29 Other chronic pain; I10 Essential (primary) hypertension; R73.9 Hyperglycemia, unspecified | CPT/HCPCS: 80053; 80061; 82306; 82607; 83036; 84443; 85025 ==

== ENCOUNTER → 2023-02-25 16:33 | Outpatient (BNVA) | payer MEDICAID, SELFPAY | PROVIDERS: PCP Nurse Practitioner Family; Visit Provider Nurse Practitioner Family | DX: M25.511 Pain in right shoulder (principal); M25.512 Pain in left shoulder; I10 Essential (primary) hypertension; R73.9 Hyperglycemia, unspecified | CPT/HCPCS: 73030; 80053; 80061; 82607; 83036; 84443; 85025 ==

== ENCOUNTER → 2023-08-25 17:10 | Outpatient (BNVA) | payer MEDICARE, MEDICAID, SELFPAY | PROVIDERS: PCP Nurse Practitioner Family; Visit Provider Nurse Practitioner Family | DX: I10 Essential (primary) hypertension (principal); J45.20 Mild intermittent asthma, uncomplicated; R73.9 Hyperglycemia, unspecified; E55.9 Vitamin D deficiency, unspecified | CPT/HCPCS: 80053; 80061; 82306; 83036; 84443; 85025 ==

== ENCOUNTER → 2024-03-08 10:55 | Outpatient (BNVA) | payer MEDICARE, MEDICAID, SELFPAY | PROVIDERS: PCP Nurse Practitioner Family; Visit Provider Nurse Practitioner Family | DX: I10 Essential (primary) hypertension; R73.9 Hyperglycemia, unspecified; Z79.899 Other long term (current) drug therapy | CPT/HCPCS: 80053; 80061; 82607; 83036; 84443; 85025 ==

== ENCOUNTER 2024-03-22 11:59 | Outpatient (CLI) | payer MEDICARE, MEDICAID, SELFPAY ==
--- NOTE | 2024-03-22 12:45 | USCV_ITS ---
Estephania Beltre Age: 53 Gender: F : 1970 Exam Date: 03/22/2024 12:38 Ordering Phys: Minerva Jefferson [employer] Technologist: CT Exam Location: [facility] [place]_ Indication: palp area left bauer area PROCEDURES: Venous duplex imaging was performed in only the left lower extremity. In addition, the posterior tibial veins were evaluated. FINDINGS: very large pt no dvt noted no abnormality noted in the palp area on left bauer by ultrasound CONCLUSIONS No evidence of left lower extremity DVT. No abnormality in the area of concern Left bauer Leonid Schaeffer MD (Electronically Signed) Final Date: 22 March 2024 13:36 S
== END 2024-03-22 12:00 | disposition home or self-care (01) ==
LOC: RAD 11:59
PROVIDERS: PCP Nurse Practitioner Family; Visit Provider Nurse Practitioner Family
DX: M79.605 Pain in left leg (principal)
CPT/HCPCS: 93971

== ENCOUNTER → 2025-01-04 15:01 | Outpatient (BNVA) | payer MEDICARE, MEDICAID, SELFPAY | PROVIDERS: PCP Nurse Practitioner Family; Visit Provider Nurse Practitioner Family | DX: I10 Essential (primary) hypertension (principal); E55.9 Vitamin D deficiency, unspecified; R53.83 Other fatigue; E66.01 Morbid (severe) obesity due to excess calories | CPT/HCPCS: 80053; 80061; 82306; 83036; 84443; 85025 ==

== ENCOUNTER → 2025-07-25 12:01 | Outpatient (BNVA) | payer MEDICARE, MEDICAID, SELFPAY | PROVIDERS: PCP Nurse Practitioner Family; Visit Provider Nurse Practitioner Family | DX: I10 Essential (primary) hypertension (principal); E55.9 Vitamin D deficiency, unspecified; E04.9 Nontoxic goiter, unspecified; R73.9 Hyperglycemia, unspecified; E66.01 Morbid (severe) obesity due to excess calories | CPT/HCPCS: 80053; 80061; 82306; 82607; 83036; 84439; 84443; 85025 ==